=== PATIENT | female | born 1965 | race Hispanic/Latino ===

== ENCOUNTER 2017-08-08 13:41 | Inpatient (IN) | payer MEDICAID, OTHER ==
[2017-08-08 13:42] VITALS: BMI 38.7
[2017-08-08] MEDS ORDERED: Sodium Chloride 0.9% 1,000 ML IV STA ×2 (14:48→21:01)
--- NOTE | 2017-08-08 15:06 | ED PDOC ---
Arrival/HPI - General Chief Complaint: Abdominal Pain Time Seen by Provider: 08/08/17 14:27 Historian: Patient - History of Present Illness Narrative History of Present Illness (Text): 08/08/17 15:03 52 year old female, whose history includes pancreatitis, presents to the Emergency department complaining of several days of epigastric pain with nausea. Patient denies any vomiting, fever, chills, chest pain, shortness of breath, dysuria, back pain, neck pain, headache, dizziness, or any other complaints. Time/Duration: < week Symptom Onset: Gradual Symptom Course: Unchanged Context: Home Past Medical History - Provider Review Nursing Documentation Reviewed: Yes - Infectious Disease Hx of Infectious Diseases: None - Reproductive Menopause: Yes - Cardiac Hx Cardiac Disorders: No Hx Angina: No Hx Atrial Fibrillation: No Hx Cardiac Arrhythmia: No Hx Circulatory Problems: No Hx Congestive Heart Failure: No Hx [place]: No Hx Heart Murmur: No Hx Heart Transplant: No Hx Hypertension: Yes Hx Hypotension: No Hx Internal Defibrillator: No Hx Mitral Valve Prolapse: No Hx Pacemaker: No Hx Peripheral Edema: No Hx Peripheral Vascular Disease: No - Pulmonary Hx Respiratory Disorders: No Hx Asthma: No Hx Bronchitis: No Hx Chronic Obstructive Pulmonary Disease (COPD): No Hx Emphysema: No Hx Lung Cancer: No Hx Pneumonia: No Hx Pulmonary Embolism: No Hx Respiratory Aspiration: No Hx Respiratory Tract Infection: No Hx Sleep Apnea: No Hx Tuberculosis: No - Neurological Hx Neurological Disorder: No Hx Alzheimer's Disease: No HX Cerebrovascular Accident: No Hx Dementia: No Hx Dizziness: No Hx Headaches: No Hx Meningitis: No Hx Migraine: No Hx Multiple Sclerosis: No Hx Paralysis: No Hx Parkinson's Disease: No Hx Seizures: No Hx Syncope: No Hx Transient Ischemic Attacks (TIA): No Hx Vertigo: No - HEENT Hx HEENT Disorder: No Hx Blind: No Hx Cataracts: No Hx Deafness: No Hx Difficulty Chewing: No Hx Epistaxis: No Hx Glaucoma: No Hx Macular Degeneration: No - Renal Hx Renal Disorder: No Hx Dialysis: No Hx Kidney Stones: No Hx Neurogenic Bladder: No Hx Pyelonephritis: No Hx Renal Failure: No - Endocrine/Metabolic Hx Endocrine Disorders: No Hx Adrenal Cancer: No Hx Diabetes Mellitus Type 2: Yes Hx Hyperthyroidism: No Hx Hypothyroidism: No Hx Systemic Lupus Erythematosus: No - Hematological/Oncological Hx Blood Disorders: No Hx Blood Transfusions: No Hx Blood Transfusion Reaction: No - Integumentary Hx Dermatological Disorder: No Hx Cellulitis: No - Musculoskeletal/Rheumatological Hx Musculoskeletal Disorders: No Hx Arthritis: No Hx Back Pain: No Hx Degenerative Joint Disease: No Hx Fractures: No Hx Gout: No Hx Herniated Disk: No Hx Myasthenia Gravis: No Hx Osteoarthritis: No Hx Osteomyelitis: No Hx Osteoporosis: No Hx Rhabdomyolysis: No Hx Rheumatoid Arthritis: No Hx Spinal Stenosis: No Hx Unsteady Gait: No - Gastrointestinal Hx Gastrointestinal Disorders: No Hx Bowel Surgery: No Hx Colitis: No Hx Constipation: No Hx Crohn's Disease: No Hx Diarrhea: No Hx Diverticulitis: No Hx Esophageal Varices: No Hx Fatty Liver Disease: No Hx Gall Bladder Disease: Yes Hx Gastritis: No Hx Gastroesophageal Reflux: No Hx Gastrointestinal Ulcer: No Hx Hemorrhoids: No Hx Ileostomy: No Hx Irritable Bowel: No Hx Liver Failure: No Hx Nausea: No Hx Pancreatitis: Yes Hx Vomiting: No - Genitourinary/Gynecological Hx Genitourinary Disorders: No Hx Bladder Cancer: No Hx Bladder Stone: No Hx Cervical Cancer: No Hx Hematuria: No Hx Incontinence: No Hx Ovarian Cancer: No Hx Prostate Cancer: No Hx Prostate Problems: No Hx Reproductive Disorders: No Hx Sexually Transmitted Diseases: No Hx Uterine Cancer: No Hx Urinary Tract Infection: No - Psychiatric Hx Psychophysiologic Disorder: No Hx Anxiety: Yes Hx Bipolar Disorder: No Hx Depression: No Hx Emotional Abuse: No Hx Hallucinations: No Hx Panic Disorder: No Hx Post Traumatic Stress Disorder: No Hx Psychosis: No Hx Physical Abuse: No Hx Schizophrenia: No Hx Sexual Abuse: No Hx Substance Use: No - Surgical History Hx Amputation: No Hx Arthroscopy: No Hx Bile Duct Stent: No Hx Breast Biopsy: No Hx Section: No Hx Cholecystectomy: Yes Hx Dilation and Curettage: No Hx Hysterectomy: No Hx Joint Replacement: No Hx Kidney Transplant: No Hx Mastectomy: No Hx Musculoskeletal Surgery: No Hx Open Reduction Internal Fixation: No Hx Orthopedic Surgery: No Hx Parathyroidectomy: No Hx Penile Implant: No Hx Thyroidectomy: No Hx Tubal Ligation: No Hx Vascular Access Device: No - Anesthesia Hx Anesthesia: Yes Hx Anesthesia Reactions: No Hx Malignant Hyperthermia: No - Suicidal Assessment Feels Threatened In Home Enviroment: No Family/Social History - Physician Review Nursing Documentation Reviewed: Yes Family/Social History: Unknown Family HX Smoking Status: Former Smoker Hx Alcohol Use: No Hx Substance Use: No Substance used: refer Hx Substance Use Treatment: No Allergies/Home Meds Allergies/Adverse Reactions: Allergies No Known Allergies Allergy (Verified 08/08/17 13:43) Home Medications: Home Meds Medication Instructions Recorded Confirmed ALPRAZolam [Xanax] 0.25 mg PO HS 10/22/15 08/08/17 Glipizide 10 mg PO BID 10/22/15 08/08/17 MetFORMIN [glucoPHAGE] 1,000 mg PO BID 10/22/15 08/08/17 Pioglitazone [Actos] 15 mg PO DAILY 08/08/17 08/08/17 Review of Systems - Physician Review All systems were reviewed & negative as marked: Yes - Review of Systems Constitutional: Normal Eyes: Normal ENT: Normal Respiratory: Normal Cardiovascular: Normal Gastrointestinal: Abdominal Pain (epigastric pain), Nausea Genitourinary Female: Normal Musculoskeletal: Normal Skin: Normal Neurological: Normal Endocrine: Normal Hemo/Lymphatic: Normal Psychiatric: Normal Physical Exam Vital Signs Reviewed: Yes Vital Signs Temp Pulse Resp BP Pulse Ox 08/08/17 17:12 67 18 137/83 96 08/08/17 16:00 77 18 124/85 97 08/08/17 13:50 98.1 F 103 H 17 122/89 95 Temperature: Afebrile Blood Pressure: Normal Pulse: Tachycardic Respiratory Rate: Normal Appearance: Positive for: Non-Toxic, Uncomfortable Pain Distress: None Mental Status: Positive for: Alert and Oriented X 3 - Systems Exam Head: Present: Atraumatic, Normocephalic Pupils: Present: PERRL Extroacular Muscles: Present: EOMI Conjunctiva: Present: Normal Mouth: Present: Moist Mucous Membranes Neck: Present: Normal Range of Motion Respiratory/Chest: Present: Clear to Auscultation, Good Air Exchange. No: Respiratory Distress, Accessory Muscle Use Cardiovascular: Present: Regular Rate and Rhythm, Normal S1, S2. No: Murmurs Abdomen: Present: Tenderness (epigastric tenderness) Back: Present: Normal Inspection Upper Extremity: Present: Normal Inspection. No: Cyanosis, Edema Lower Extremity: Present: Normal Inspection. No: Edema Neurological: Present: GCS=15, CN II-XII Intact, Speech Normal Skin: Present: Warm, Dry, Normal Color. No: Rashes Psychiatric: Present: Alert, Oriented x 3, Normal Insight, Normal Concentration Medical Decision Making ED Course and Treatment: 08/08/17 15:10 You were treated in the ED today for abdominal pain otherwise without any vomiting/headache/dizziness/difficulty breathing/chest pain/numbness/tingling/ loss of limb function/pain with urination. You were otherwise breathing easily, good strength/sensation, walking easily, clear lungs, mild epigastric abdomen tenderness, no fever temp 98.1, stable heart rate 103, stable breathing rate 17 , stable oxygen level 95% room air, stable blood pressure 122/89, you have blood tests no infection count 7.2, stable blood level hemoglobin 15.6/ platelets 273, stable chemistry sodium 133, potassium 4.3, bicarbonate 27, chloride 95, bun 16, creatinine 0.8, glucose 377 which we gave intravenous fluids and repeat, heart blood test <0.01, urine test no acute sign of infection , urine test you stated menopause, radiology CT abdomen/pelvis mesenteric stranding uncinate/duodenum pancreatitis, ECG similar to prior, intravenous fluids, hydromorphone done in the ED with improvement, counselled to drink liquids for 24-48hours. Plan: -- EKG -- Urinalysis -- Labs -- Pepcid, Sodium Chloride IV fluids -- Reassess and disposition 08/08/17 17:36 08/08/17 17:39 08/08/17 20:15 08/08/17 21:33 d/w Dr. [place] who [place] [facility] [place] - Lab Interpretations Lab Results: 08/08/17 15:00 08/08/17 15:00 Lab Results 08/08/17 18:34: POC Glucose (mg/dL) 273 H 08/08/17 15:10: Urine Color Yellow, Urine Appearance Sl cloudy, Urine pH 6.0, Ur Specific [place] 1.020, Urine Protein 100 H, Urine Glucose (UA) >=1000, Urine Ketones Negative, Urine Blood Trace-intact H, Urine Nitrate Negative, Urine Bilirubin Negative, Urine Urobilinogen 0.2, Ur Leukocyte Esterase Negative , Urine RBC 0 - 2, Urine WBC 2 - 5, Ur Epithelial Cells 6 - 8, Urine Bacteria Few 08/08/17 15:00: Sodium 133, Potassium 4.3, Chloride 95 L, Carbon Dioxide 27, Anion Gap 16, BUN 16, Creatinine 0.8, Est GFR ( Amer) > 60, Est GFR (Non- Af Amer) > 60, Random Glucose 377 H* D, Calcium 10.3, Total Bilirubin 0.6, AST 27, ALT 45, Alkaline Phosphatase 58, Troponin I < 0.01, Total Protein 7.6, Albumin 4.2, Globulin 3.5, Albumin/Globulin Ratio 1.2, Lipase 247 08/08/17 15:00: PT 11.8, INR 1.03, APTT 31.6 08/08/17 15:00: WBC 7.2, RBC 5.05, Hgb 15.6, Hct 43.3, MCV 85.7, MCH 30.9, MCHC 36.0, RDW 12.6, Plt Count 273, MPV 10.2, Gran % 64.6, Lymph % (Auto) 28.8, [place] % (Auto) 4.7, Eos % (Auto) 1.5, Baso % (Auto) 0.4, Gran # 4.67, Lymph # 2.1, [place] # 0.3, Eos # 0.1, Baso # 0.03 I have reviewed the lab results: Yes - RAD Interpretation Radiology Orders: 08/08/17 16:15 ABDOMEN & PELVIS [ABD & PELVIS IV CONTRAST ONLY] [CT] Stat - EKG Interpretation Interpreted by ED Physician: Yes (NSR, flipped t waves avr, v1, flattened iii) Type: 12 lead EKG Comparison: Similar to previous EKG (01/23/16) - Medication Orders Current Medication Orders: Famotidine (Pepcid) 40 mg PO HS THIAGO Fenofibrate (Tricor) 145 mg PO DAILY THIAGO Heparin Sodium (Porcine) (Heparin) 5,000 units SC Q8 THIAGO PRN Reason: Protocol Hydralazine HCl (Apresoline) 10 mg IVP Q6 PRN PRN Reason: Systolic Blood Pressure Sodium Chloride (Sodium Chloride 0.9%) 1,000 mls @ 999 mls/hr IV .Q1H1M STA Stop: 08/08/17 22:01 Sodium Chloride (Sodium Chloride 0.9%) 1,000 mls @ 125 mls/hr IV .Q8H THIAGO Insulin Human Lispro (Humalog Med) 0 units SC ACHS THIAGO PRN Reason: Protocol Losartan Potassium (Cozaar) 50 mg PO DAILY THIAGO Morphine Sulfate (Morphine) 1 mg IVP Q4H PRN PRN Reason: Pain, severe (8-10) Ondansetron HCl (Zofran Inj) 4 mg IVP Q6H PRN PRN Reason: Nausea/Vomiting Oxycodone/Acetaminophen (Percocet 5/325 Mg Tab) 1 tab PO Q6H PRN PRN Reason: Pain, moderate (4-7) Stop: 08/11/17 21:18 Discontinued Medications Famotidine (Pepcid) 20 mg IVP STAT STA Stop: 08/08/17 14:49 Last Admin: 08/08/17 15:15 Dose: 20 mg IVP Administration Document 08/08/17 15:15 SF (Rec: 08/08/17 15:15 SF [id number] Charges for Administration # of IVP Administrations 1 Hydromorphone HCl (Dilaudid) 1 mg IVP STAT STA Stop: 08/08/17 15:25 Last Admin: 08/08/17 16:02 Dose: 1 mg MAR Pain Assessment Document 08/08/17 16:02 SF (Rec: 08/08/17 16:02 SF [id number] Pain Reassessment Is this a pain reassessment? Yes Sleep Is patient sleeping during reassessment? No Presence of Pain Presence of Pain Yes Pain Scale Used Pain Scale Used Numeric Location Pain Location Body Site Abdomen IVP Administration Document 08/08/17 16:02 SF (Rec: 08/08/17 16:02 SF [id number] Charges for Administration # of IVP Administrations 1 Hydromorphone HCl (Dilaudid) 1 mg IVP STAT STA Stop: 08/08/17 19:55 Last Admin: 08/08/17 20:43 Dose: 1 mg MAR Pain Assessment Document 08/08/17 20:43 SS (Rec: 08/08/17 20:43 SS [id number]) Pain Reassessment Is this a pain reassessment? No Presence of Pain Presence of Pain Yes Pain Scale Used Pain Scale Used Numeric Location Pain Location Body Site Abdomen Description Intensity of Pain at present 8 Pain Behavior Facial Grimacing IVP Administration Document 08/08/17 20:43 SS (Rec: 08/08/17 20:43 SS [id number]) Charges for Administration # of IVP Administrations 1 Sodium Chloride (Sodium Chloride 0.9%) 1,000 mls @ 1,000 mls/hr IV .Q1H STA Stop: 08/08/17 15:47 Last Admin: 08/08/17 15:15 Dose: 1,000 mls/hr eMAR Start Stop Document 08/08/17 15:15 SF (Rec: 08/08/17 15:15 SF [id number] Intravenous Solution Start Date 08/08/17 Start Time 15:15 End Date 08/08/17 End time 16:15 Total Infusion Time 60 Ondansetron HCl (Zofran Inj) 4 mg IVP ONCE ONE Stop: 08/08/17 15:25 Last Admin: 08/08/17 16:02 Dose: 4 mg IVP Administration Document 08/08/17 16:02 SF (Rec: 08/08/17 16:02 SF [id number] Charges for Administration # of IVP Administrations 1 Ondansetron HCl (Zofran Inj) 4 mg IVP STAT STA Stop: 08/08/17 19:55 Last Admin: 08/08/17 20:43 Dose: 4 mg IVP Administration Document 08/08/17 20:43 SS (Rec: 08/08/17 20:43 SS [id number]) Charges for Administration # of IVP Administrations 1 Pantoprazole Sodium (Protonix Inj) 80 mg IVP STAT STA Stop: 08/08/17 19:54 Last Admin: 08/08/17 20:42 Dose: 80 mg IVP Administration Document 08/08/17 20:42 SS (Rec: 08/08/17 20:42 SS [id number]) Charges for Administration # of IVP Administrations 1 - Scribe Statement The provider has reviewed the documentation as recorded by the Victoria Diaz Provider Scribe Attestation: All medical record entries made by the Scribe were at my direction and personally dictated by me. I have reviewed the chart and agree that the record accurately reflects my personal performance of the history, physical exam, medical decision making, and the department course for this patient. I have also personally directed, reviewed, and agree with the discharge instructions and disposition. Disposition/Present on Arrival - Present on Arrival Any Indicators Present on Arrival: No History of DVT/PE: No History of Uncontrolled Diabetes: Yes Urinary Catheter: No History of Decub. Ulcer: No History Surgical Site Infection Following: None - Disposition Have Diagnosis and Disposition been Completed?: Yes Diagnosis: Pancreatitis, Hyperglycemia Disposition: HOSPITALIZED Disposition Time: 21:34 Patient Plan: Admission Patient Problems: Current Active Problems Problem Status Onset Hyperglycemia Acute Pancreatitis Acute Condition: STABLE
[2017-08-08 15:14] LABS: BASO # 0.03 K/mm3 (0.0-2.0); BASO % 0.4 % (0.0-3.0); EOS # 0.1 (0.0-0.7); EOS % 1.5 % (1.5-5.0); GRAN # 4.67 (1.4-6.5); GRAN % 64.6 % (50.0-68.0); HEMOGLOBIN 15.6 g/dL (12.0-16.0); LYMPH # 2.1 (1.2-3.4); LYMPH % 28.8 % (22.0-35.0); MEAN CELL VOLUME 85.7 fl (80.0-105.0); MEAN CORPUSCULAR HEMOGLOBIN 30.9 pg (25.0-35.0); MEAN PLATELET VOLUME 10.2 fl (7.0-11.0); MONO # 0.3 (0.1-0.6); MONO % 4.7 % (1.0-6.0); RBC 5.05 10^6/uL (3.5-6.1); RED CELL DISTRIBUTION WIDTH 12.6 % (11.5-14.5); WHITE BLOOD COUNT 7.2 10^3/ul (4.5-11.0)
[2017-08-08 15:24] LABS: URINE BILIRUBIN NEGATIVE (NEGATIVE); URINE BLOOD TRACE-INTACT (NEGATIVE); URINE GLUCOSE (UA) >=1000 mg/dL (NEGATIVE); URINE LEUKOCYTE ESTERASE NEGATIVE Leu/uL (NEGATIVE); URINE NITRATE NEGATIVE (NEGATIVE); URINE PROTEIN 100 mg/dL (<30 mg/dL); URINE UROBILINOGEN 0.2 E.U./dL (<1 E.U./dL)
[2017-08-08] MEDS ORDERED: HYDROmorphone 1 mg/ml ISec IVP STA ×2 (15:24→19:54)
[2017-08-08 15:25] LABS: URINE APPEARANCE SL CLOUDY (CLEAR); URINE COLOR YELLOW (YELLOW)
[2017-08-08 15:30] LABS: TROPONIN I < 0.01 ng/mL
[2017-08-08 15:34] LABS: INR 1.03 (0.93-1.08); PARTIAL THROMBOPLASTIN TIME 31.6 Seconds (25.1-36.5); PROTHROMBIN TIME 11.8 SECONDS (9.4-12.5)
[2017-08-08 15:41] LABS: ALB/GLOB RATIO 1.2 (1.1-1.8); ALBUMIN 4.2 g/dL (3.0-4.8); ALT/SGPT 45 U/L (7-56); AST/SGOT 27 U/L (14-36); BLOOD UREA NITROGEN 16 mg/dL (7-21); CALCIUM 10.3 mg/dL (8.4-10.5); GFR AFRICAN-AMERICAN > 60; GFR NON-AFRICAN AMERICAN > 60; LIPASE 247 U/L (23-300)
[2017-08-08 15:41] LABS: URINE BACTERIA FEW (NEG); URINE RBC 0 - 2 /hpf (0-2)
[2017-08-08] MEDS ORDERED: Iohexol 350 MG/100 ML VIAL ONE (18:02)
--- NOTE | 2017-08-08 19:49 | CT ---
EXAM: CT Abdomen and Pelvis With Intravenous Contrast CLINICAL HISTORY: 52 years old, female; Pain; Abdominal pain; Epigastric; Prior surgery; Surgery date: 6+ months; Surgery type: Gallbladder removal; Patient HX: 52yof, epigastric pain/tenderness. ; Additional info: 52yof, epigastric pain/tenderness. TECHNIQUE: Axial computed tomography images of the abdomen and pelvis with intravenous contrast. All CT scans at this facility use one or more dose reduction techniques, viz.: automated exposure control; ma/kV adjustment per patient size (including targeted exams where dose is matched to indication; i.e. head); or iterative reconstruction technique. Coronal and sagittal reformatted images were created and reviewed. CONTRAST: 96 mL of OMNIPAQUE 350 administered intravenously. COMPARISON: CT - ABD PELVIS IV CONTRAST ONLY 2016-01-23 14:02 FINDINGS: Lower thorax: Dependent atelectasis. Liver: Fatty infiltration of the liver. Gallbladder and bile ducts: Status post cholecystectomy. Pancreas: Mesenteric stranding in region of uncinate process. Approximately 1 x 2 x 4 cm mass between the uncinate process and IVC, question norma conglomerate or other mass. Spleen: No splenomegaly. Adrenals: 2 cm left adrenal mass. Kidneys and ureters: No acute abnormality as visualized. Symmetric emhancement. No hydronephrosis. Stomach and bowel: Limited evaluation without enteric contrast. Thickening of distal esophageal wall/hiatal hernia. Adjacent mesenteric stranding in region of duodenal sweep. No obstruction. Bladder: No acute abnormality as visualized. Reproductive: Evidence of approximately 2 cm right ovarian cyst. Further evaluation can be performed with dedicated ultrasound. Intraperitoneal space: No free air. No significant fluid collection. Bones: Degenerative changes. Vasculature: Atherosclerosis. No abdominal aortic aneurysm. IMPRESSION: Mesenteric stranding in region of uncinate process. Mesenteric stranding is also adjacent to the duodenal sweep. Question pancreatitis versus duodenitis. Correlate clinically. Evaluation limited without enteric contrast. Approximately 1 x 2 x 4 cm mass between the uncinate process and IVC, question norma conglomerate or other mass. This is visualized on prior study. Further evaluation recommended. Thickening of distal esophageal wall/hiatal hernia. 2 cm left adrenal mass. Fatty infiltration of the liver. Status post cholecystectomy. Evidence of approximately 2 cm right ovarian cyst. Further evaluation can be performed with dedicated ultrasound.
--- NOTE | 2017-08-08 20:24 | CP.PCM.HP ---
<Ubaldo Daniels - Last Filed: 08/08/17 20:46> History of Present Illness - History of Present Illness History of Present Illness: CC: abdominal pain Subjective: HPI: Patient is a 52 year old female with past medical history of pancreatits, htn, dm, anxiety, adrenal adenoma, who presents to the emergency department for evaluation and treatment of abdominal pain. The pain began 2 days ago with no specific provoking events. It originates in epigastrum and radiates to the back. There is associated nausea and non bloody non bilious vomitting. States the pain worsens with po intake. Denies recent travel and sick contacts. Patient denies intractable headache, fever, chills, dizziness, blurry vision, ringing in the ears, chest pain, shortness of breath, diarrhea, constipation, and urinary symptoms. ROS: 12 point review of systems negative except as indicated in HPI PMHx: pancreatitis of unknown etiology, cholecystitis s/p cholecystectomy, DM-2 , HTN , Anxiety, adrenal adenoma PSHx: cholecystectomy Allergies: NKDA Family Hx: Father - CHF and [place] Social Hx: denies ETOH use, current 1/2 ppd tobacco use for that past 30 years , former illicit drug use-quit over 15 years ago Medications: Please see medication reconciliation Physical Examination: - Constitutional Appears: Non-toxic, No Acute Distress - Head Exam Head Exam: atraumatic, normocephalic - Eye Exam Eye Exam: Normal appearance, PERRL. absent: Scleral icterus - ENT Exam ENT Exam: Mucous Membranes Moist - Neck Exam Neck exam: Normal Inspection - Respiratory Exam Respiratory Exam: Normal Breathing Pattern - Cardiovascular Exam Cardiovascular Exam: +S1, +S2. absent: Gallop, JVD - GI/Abdominal Exam GI & Abdominal Exam: tender to palpation in the epigastrum, Normal Bowel Sounds , absent: Distended, Guarding, Pulsatile Mass, Rebound, Rigid - Extremities Exam Extremities exam: Negative for: calf tenderness - Neurological Exam Neurological exam: Patient is awake, alert, responds to verbal stimuli, answers questions appropriately, follows commands, and moves extremities past midline - Psychiatric Exam Psychiatric exam: Normal Affect, Normal Mood - Skin Skin Exam: warm and dry Assessment and Plan: Patient is a 52 year old female with past medical history of pancreatits, htn, dm, anxiety, adrenal adenoma, who was admitted for evaluation and treatment of abdominal pain. Abdominal Pain, Hx of Pancreatitis - clinically presents as pancreatitis though lipase is WNL vs duodenitis - CT of abd/pelvis reviewed- Mesenteric stranding in region of uncinate process. Mesenteric stranding is also adjacent to the duodenal sweep. Question pancreatitis versus duodenitis. Approximately 1 x 2 x 4 cm mass between the uncinate process and IVC, question norma conglomerate or other mass. This is visualized on prior study. - zofran - pain control via pecocet 1mg q6 prn moderate pain, morphine 1mg q4 prn severe pain - IVF NS @ 125 - clear liquid diet- advance diet as tolerated Hyperglycemia, Hx of Diabetes - hold home diabetic medications - fingersticks ACHS - insulin sliding scale- lispro medium - resume diet as carb consistent as end goal - a1c ordered and pending Hx of Htn - BP reviewed trended and appreciated - c/w losartan - hydralazine 5mg IV q6 prn SBP > 180, holding parameters- do not administer if HR is > 100 bpm Hx of Hyperlipidemia - c/w fenofibrate - lipid profile pending Hx of Adrenal Adenoma - 2 cm left adrenal mass seen on CT - no acute intervention at this point Ovarian Cyst - CT of abdomen and pelvis- Evidence of approximately 2 cm right ovarian cyst - Further evaluation can be performed with dedicated ultrasound. - obgyn outpatient work up Tobacco Abuse - nicotine patch offered - smoking cessation advised - patient education provided on dangers of tobacco abuse Prophylaxis - DVT ppx- scds - GI ppx- famotidine Patient case discussed with and plan approved by attending physician. 08/08/17 20:17 Present on Admission - Present on Admission Any Indicators Present on Admission: No Past Patient History - Infectious Disease Hx of Infectious Diseases: None - Past Social History Smoking Status: Former Smoker - CARDIAC Hx Cardiac Disorders: No Hx Angina: No Hx Atrial Fibrillation: No Hx Cardia Arrhythmia: No Hx Circulatory Problems: No Hx Congestive Heart Failure: No Hx Heart Attack: No Hx Heart Murmur: No Hx Heart Transplant: No Hx Hypertension: Yes Hx Hypotension: No Hx Internal Defibrillator: No Hx Mitral Valve Prolapse: No Hx Pacemaker: No Hx Peripheral Edema: No Hx Peripheral Vascular Disease: No - PULMONARY Hx Respiratory Disorders: No Hx Asthma: No Hx Bronchitis: No Hx Chronic Obstructive Pulmonary Disease (COPD): No Hx Emphysema: No Hx Lung Cancer: No Hx Pneumonia: No Hx Pulmonary Embolism: No Hx Respiratory Aspiration: No Hx Respiratory Tract Infection: No Hx Sleep Apnea: No Hx Tuberculosis: No - NEUROLOGICAL Hx Neurological Disorder: No Hx Alzheimer's Disease: No HX Cerebrovascular Accident: No Hx Dementia: No Hx Dizziness: No Hx Meningitis: No Hx Migraine: No Hx Multiple Sclerosis: No Hx Paralysis: No Hx Parkinson's Disease: No Hx Seizures: No Hx Syncope: No Hx Transient Ischemic Attacks (TIA): No Hx Vertigo: No - HEENT Hx HEENT Problems: No Hx Blind: No Hx Cataracts: No Hx Deafness: No Hx Difficulty Chewing: No Hx Epistaxis: No Hx Glaucoma: No Hx Macular Degeneration: No - RENAL Hx Chronic Kidney Disease: No Hx Dialysis: No Hx Kidney Stones: No Hx Neurogenic Bladder: No Hx Pyelonephritis: No Hx Renal Failure: No - ENDOCRINE/METABOLIC Hx Endocrine Disorders: No Hx Adrenal Cancer: No Hx Diabetes Mellitus Type 2: Yes Hx Hyperthyroidism: No Hx Hypothyroidism: No Hx Systemic Lupus Erythematosus: No - HEMATOLOGICAL/ONCOLOGICAL Hx Blood Disorders: No Hx Blood Transfusions: No Hx Blood Transfusion Reaction: No - INTEGUMENTARY Hx Dermatological Problems: No Hx Cellulitis: No - MUSCULOSKELETAL/RHEUMATOLOGICAL Hx Musculoskeletal Disorders: No Hx Arthritis: No Hx Back Pain: No Hx Degenerative Joint Disease: No Hx Fractures: No Hx Gout: No Hx Herniated Disk: No Hx Myasthenia Gravis: No Hx Osteoarthritis: No Hx Osteomyelitis: No Hx Osteoporosis: No Hx Rhabdomyolysis: No Hx Rheumatoid Arthritis: No Hx Spinal Stenosis: No Hx Unsteady Gait: No - GASTROINTESTINAL Hx Gastrointestinal Disorders: No Hx Bowel Surgery: No Hx Colitis: No Hx Constipation: No Hx Crohn's Disease: No Hx Diarrhea: No Hx Diverticulitis: No Hx Esophageal Varices: No Hx Fatty Liver Disease: No Hx Gall Bladder Disease: Yes Hx Gastritis: No Hx Gastroesophageal Reflux: No Hx Hemorrhoids: No Hx Ileostomy: No Hx Irritable Bowel: No Hx Liver Failure: No Hx Nausea: No Hx Pancreatitis: Yes Hx Vomiting: No - GENITOURINARY/GYNECOLOGICAL Hx Genitourinary Disorders: No Hx Bladder Cancer: No Hx Bladder Stone: No Hx Cervical Cancer: No Hx Hematuria: No Hx Incontinence: No Hx Ovarian Cancer: No Hx Reproductive Disorders: No Hx Sexually Transmitted Disorders: No Hx Uterine Cancer: No Hx Urinary Tract Infection: No - PSYCHIATRIC Hx Psychophysiologic Disorder: No Hx Anxiety: Yes Hx Bipolar Disorder: No Hx Depression: No Hx Emotional Abuse: No Hx Hallucinations: No Hx Panic Symptoms: No Hx Post Traumatic Stress Disorder: No Hx Psychosis: No Hx Physical Abuse: No Hx Schizophrenia: No Hx Sexual Abuse: No Hx Substance Use: No - SURGICAL HISTORY Hx Amputation: No Hx Arthroscopy: No Hx Bile Duct Stent: No Hx Breast Biopsy: No Hx Section: No Hx Cholecystectomy: Yes Hx Dilation and Curettage: No Hx Hysterectomy: No Hx Joint Replacement: No Hx Kidney Transplant: No Hx Mastectomy: No Hx Musculoskeletal Surgery: No Hx Open Reduction Internal Fixation: No Hx Orthopedic Surgery: No Hx Parathyroidectomy: No Hx Penile Implant: No Hx Thyroidectomy: No Hx Tubal Ligation: No Hx Vascular Access Device: No - ANESTHESIA Hx Anesthesia: Yes Hx Anesthesia Reactions: No Hx Malignant Hyperthermia: No Meds Allergies/Adverse Reactions: Allergies Allergy/AdvReac Type Severity Reaction Status Date / Time No Known Allergies Allergy Verified 08/08/17 13:43 Results - Vital Signs Recent Vital Signs: Last Vital Signs Temp 98.1 F 08/08/17 13:50 Pulse 67 08/08/17 17:12 Resp 18 08/08/17 17:12 BP 137/83 08/08/17 17:12 Pulse Ox 96 08/08/17 17:12 - Labs Result Diagrams: 08/08/17 15:00 08/08/17 15:00 Labs: Laboratory Results - last 24 hr 08/08/17 08/08/17 08/08/17 15:00 15:00 15:00 WBC 7.2 RBC 5.05 Hgb 15.6 Hct 43.3 MCV 85.7 MCH 30.9 MCHC 36.0 RDW 12.6 Plt Count 273 MPV 10.2 Gran % 64.6 Lymph % (Auto) 28.8 [place] % (Auto) 4.7 Eos % (Auto) 1.5 Baso % (Auto) 0.4 Gran # 4.67 Lymph # 2.1 Will[place] # 0.3 Eos # 0.1 Baso # 0.03 PT 11.8 INR 1.03 APTT 31.6 Sodium 133 Potassium 4.3 Chloride 95 L Carbon Dioxide 27 Anion Gap 16 BUN 16 Creatinine 0.8 Est GFR ( Amer) > 60 Est GFR (Non-Af Amer) > 60 POC Glucose (mg/dL) Random Glucose 377 H* D Calcium 10.3 Total Bilirubin 0.6 AST 27 ALT 45 Alkaline Phosphatase 58 Troponin I < 0.01 Total Protein 7.6 Albumin 4.2 Globulin 3.5 Albumin/Globulin Ratio 1.2 Lipase 247 Urine Color Urine Appearance Urine pH Ur Specific Stamps Urine Protein Urine Glucose (UA) Urine Ketones Urine Blood Urine Nitrate Urine Bilirubin Urine Urobilinogen Ur Leukocyte Esterase Urine RBC Urine WBC Ur Epithelial Cells Urine Bacteria 08/08/17 08/08/17 15:10 18:34 WBC RBC Hgb Hct MCV MCH MCHC RDW Plt Count MPV Gran % Lymph % (Auto) [place] % (Auto) Eos % (Auto) Baso % (Auto) Gran # Lymph # Willacy # Eos # Baso # PT INR APTT Sodium Potassium Chloride Carbon Dioxide Anion Gap BUN Creatinine Est GFR ( Amer) Est GFR (Non-Af Amer) POC Glucose (mg/dL) 273 H Random Glucose Calcium Total Bilirubin AST ALT Alkaline Phosphatase Troponin I Total Protein Albumin Globulin Albumin/Globulin Ratio Lipase Urine Color Yellow Urine Appearance Sl cloudy Urine pH 6.0 Ur Specific Stamps 1.020 Urine Protein 100 H Urine Glucose (UA) >=1000 Urine Ketones Negative Urine Blood Trace-intact H Urine Nitrate Negative Urine Bilirubin Negative Urine Urobilinogen 0.2 Ur Leukocyte Esterase Negative Urine RBC 0 - 2 Urine WBC 2 - 5 Ur Epithelial Cells 6 - 8 Urine Bacteria Few <UniqueMick Q - Last Filed: 08/09/17 01:23> Results - Vital Signs Recent Vital Signs: Last Vital Signs Temp 98.1 F 08/08/17 13:50 Pulse 64 08/08/17 22:07 Resp 18 08/08/17 23:40 BP 147/83 08/08/17 22:07 Pulse Ox 99 08/08/17 22:07 - Labs Result Diagrams: 08/08/17 15:00 08/08/17 15:00 Labs: Laboratory Results - last 24 hr 08/08/17 21:55 POC Glucose (mg/dL) 257 H Attending/Attestation - Attestation I have personally seen and examined this patient.: Yes I have fully participated in the care of the patient.: Yes I have reviewed all pertinent clinical information: Yes Notes (Text): 08/09/17 01:22 I agree with the above note and exam by the resident with the addition/ exception of the following: Abd pain secondary to duodenitis vs pancreatitis vs viral gastroenteritis. Will start patient on a CLD and advance as tolerated; avoidance of high dose opiates which were started in the ED for analgesia.
[2017-08-08] MEDS ORDERED: Sodium Chloride 0.9% 1,000 ML IV SCH (21:15)
[2017-08-08] MEDS: Insulin Lispro (humaLOG) MEDIUM Coverage SC SCH (22:32)
[2017-08-08 22:43] LABS: HDL CHOLESTEROL 38 mg/dL (29-60)
[2017-08-08 22:54] LABS: LDL CHOLESTEROL 130 mg/dL (0-129)
[2017-08-08] MEDS: Morphine 2 mg/ml ISec IVP PRN ×2 (23:34→23:59)
[2017-08-09] MEDS: Oxycodone/Acetaminophen 5/325 mg Tab PO PRN ×3 (02:56→20:19)
[2017-08-09] MEDS: Morphine 2 mg/ml ISec IVP PRN ×3 (05:15→17:11)
[2017-08-09] MEDS ORDERED: HYDROmorphone 0.5 mg/0.5 ml ISec IVP STA (06:07)
[2017-08-09 07:17] LABS: BASO # 0.04 K/mm3 (0.0-2.0); BASO % 0.5 % (0.0-3.0); EOS # 0.2 (0.0-0.7); EOS % 2.1 % (1.5-5.0); GRAN # 4.81 (1.4-6.5); GRAN % 62.4 % (50.0-68.0); LYMPH # 2.2 (1.2-3.4); MEAN CELL VOLUME 86.2 fl (80.0-105.0); MEAN CORPUSCULAR HEMOGLOBIN 30.5 pg (25.0-35.0); MEAN CORPUSCULAR HGB CONC 35.3 g/dl (31.0-37.0); MONO # 0.5 (0.1-0.6); RBC 4.43 10^6/uL (3.5-6.1); RED CELL DISTRIBUTION WIDTH 12.6 % (11.5-14.5); WHITE BLOOD COUNT 7.7 10^3/ul (4.5-11.0)
[2017-08-09 07:19] LABS: HEMOGLOBIN 13.5 g/dL (12.0-16.0)
[2017-08-09 07:45] LABS: ALB/GLOB RATIO 1.1 (1.1-1.8); ALBUMIN 3.5 g/dL (3.0-4.8); ALT/SGPT 35 U/L (7-56); AST/SGOT 24 U/L (14-36); BLOOD UREA NITROGEN 14 mg/dL (7-21); CALCIUM 9.3 mg/dL (8.4-10.5); GFR AFRICAN-AMERICAN > 60; GFR NON-AFRICAN AMERICAN > 60; MAGNESIUM 1.1 mg/dL (1.7-2.2)
[2017-08-09] MEDS ORDERED: Magnesium Oxide 400 mg Tab UD PO STA (08:20)
--- NOTE | 2017-08-09 09:25 | CP.PCM.PN ---
Subjective - Date & Time of Evaluation Date of Evaluation: 08/09/17 Time of Evaluation: 10:52 - Subjective Subjective: Patient was seen and examined at bedside. she states that her pain has improved. she states that she has had this pain 3 times before, starting after the time she got the cholecystectomy (by Dr. Jolley. patient is not vomiting and nausea is improving. Patient denies any headaches, dizziness, fevers/chills , sob, chest pain or urinary changes. Objective - Vital Signs/Intake and Output Vital Signs (last 24 hours): Temp Pulse Resp BP Pulse Ox 97.8 F 65 20 159/65 H 94 L 08/09/17 07:30 08/09/17 07:30 08/09/17 07:30 08/09/17 07:30 08/09/17 07:30 Intake and Output: 08/09/17 08/09/17 06:59 18:59 Intake Total 1280 Balance 1280 - Medications Medications: Current Medications Famotidine (Pepcid) 40 mg PO HS THIAGO Last Admin: 08/08/17 23:36 Dose: 40 mg Fenofibrate (Tricor) 145 mg PO DAILY [facility] Heparin Sodium (Porcine) (Heparin) 5,000 units SC Q8 THIAGO PRN Reason: Protocol Last Admin: 08/09/17 06:32 Dose: 5,000 units Hydralazine HCl (Apresoline) 10 mg IVP Q6 PRN PRN Reason: Systolic Blood Pressure Lactated Ringer's (Lactated Ringer's) 1,000 mls @ 200 mls/hr IV .Q5H THIAGO Insulin Human Lispro (Humalog Med) 0 units SC ACHS THIAGO PRN Reason: Protocol Last Admin: 08/08/17 22:32 Dose: Not Given Losartan Potassium (Cozaar) 50 mg PO DAILY [facility] Morphine Sulfate (Morphine) 1 mg IVP Q4H PRN PRN Reason: Pain, severe (8-10) Last Admin: 08/09/17 05:15 Dose: 1 mg Ondansetron HCl (Zofran Inj) 4 mg IVP Q6H PRN PRN Reason: Nausea/Vomiting Last Admin: 08/09/17 00:06 Dose: 4 mg Oxycodone/Acetaminophen (Percocet 5/325 Mg Tab) 1 tab PO Q6H PRN PRN Reason: Pain, moderate (4-7) Stop: 08/11/17 21:18 Last Admin: 08/09/17 02:56 Dose: 1 tab - Labs Labs: 08/09/17 06:30 08/09/17 06:30 PT 11.8 SECONDS (9.4-12.5) 08/08/17 15:00 INR 1.03 (0.93-1.08) 08/08/17 15:00 APTT 31.6 Seconds (25.1-36.5) 08/08/17 15:00 - Additional Findings Additional findings: - Constitutional Appears: Non-toxic, No Acute Distress - Head Exam Head Exam: atraumatic, normocephalic - Eye Exam Eye Exam: Normal appearance, PERRL. absent: Scleral icterus - ENT Exam ENT Exam: Mucous Membranes Moist - Neck Exam Neck exam: Normal Inspection - Respiratory Exam Respiratory Exam: Normal Breathing Pattern - Cardiovascular Exam Cardiovascular Exam: +S1, +S2. absent: Gallop, JVD - GI/Abdominal Exam GI & Abdominal Exam: tender to palpation in the epigastrum, Normal Bowel Sounds , absent: Distended, Guarding, Pulsatile Mass, Rebound, Rigid - Extremities Exam Extremities exam: Negative for: calf tenderness - Neurological Exam Neurological exam: Patient is awake, alert, responds to verbal stimuli, answers questions appropriately, follows commands, and moves extremities past midline - Psychiatric Exam Psychiatric exam: Normal Affect, Normal Mood - Skin Skin Exam: warm and dry Assessment and Plan - Assessment and Plan (Free Text) Assessment: 52 year old female with past medical history of pancreatits, htn, dm, anxiety, adrenal adenoma, who was admitted for evaluation and treatment of abdominal pain. Plan: Abdominal Pain, Hx of Pancreatitis - clinically presents as pancreatitis though lipase is WNL - CT of abd/pelvis reviewed- Mesenteric stranding in region of uncinate process. Mesenteric stranding is also adjacent to the duodenal sweep. Question pancreatitis versus duodenitis. Approximately 1 x 2 x 4 cm mass between the uncinate process and IVC, question norma conglomerate or other mass. This is visualized on prior study. - zofran - pain control via pecocet 1mg q6 prn moderate pain, morphine 1mg q4 prn severe pain - IVF NS @ 125 - clear liquid diet- advance diet as tolerated - GI consulted, recs appreciated Hyperglycemia, Hx of Diabetes - hold home diabetic medications - fingersticks ACHS - insulin sliding scale- lispro medium - resume diet as carb consistent as end goal - a1c ordered and pending Hypomagnesemia - magnesium ordered Hx of Htn - BP reviewed trended and appreciated - c/w losartan - hydralazine 5mg IV q6 prn SBP > 180, holding parameters- do not administer if HR is > 100 bpm Hx of Hyperlipidemia - c/w fenofibrate - elevated LDL Hx of Adrenal Adenoma - 2 cm left adrenal mass seen on CT - no acute intervention at this point Ovarian Cyst - CT of abdomen and pelvis- Evidence of approximately 2 cm right ovarian cyst - obgyn outpatient work up Tobacco Abuse - nicotine patch offered - smoking cessation advised - patient education provided on dangers of tobacco abuse Prophylaxis - DVT ppx- scds - GI ppx- famotidine Patient was seen, examined and discussed with attending, Dr. Mojgan Clemens PGY1
--- NOTE | 2017-08-09 09:26 | CARD ---
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 Possible anterior SC, old No change
[2017-08-09] MEDS: Insulin Lispro (humaLOG) MEDIUM Coverage SC SCH ×4 (09:52→22:33)
--- NOTE | 2017-08-09 11:44 | CP.PCM.CON ---
<Delmar Haque - Last Filed: 08/09/17 12:10> History of Present Illness - History of Present Illness History of Present Illness: GI Consult note: 52 F with past medical history of ETOH abuse quit drinking in 2010, pancreatits s/p cholecystectomy in 2010 and recurrent pancreatitis followed by EUS in 2011 which was negative for any pancreatic mass, htn, dm, anxiety, adrenal adenoma, who presents to the ED with abdominal pain. Patient states that the abdominal pain is epigastric and started 2 days ago. The pain radiates to the back and is 8/10 in severity. She also complain of nausea and nonbloody nonbilious vomiting. Denies any provoking events. Pt does state that she just recently started smoking again after quitting for 2.5 years. Pt denies any freitas, dizziness , f/c, sob, chest pain, diarrhea or urinary changes. GI team was consulted for abdominal pain. 12 point ROS performed and negative except as indicated in HPI PMHx: pancreatitis , cholecystitis s/p cholecystectomy, DM-2, HTN , Anxiety, adrenal adenoma PSHx: cholecystectomy (2010) Allergies: NKDA Family Hx: Father - CHF and [facility] Social Hx: ETOH abuse (quit drinking in 2010 following cholecystectomy), current 1/2 ppd tobacco use x 30 years, former illicit drug use-quit over 15 years ago Medications: Please see medication reconciliation Endo Hx: EGD and colonoscopy was done [address] Onofre - As per patient EGD was normal, Colonoscopy showed "precancerous polyp" to be followed up after 3 years Review of Systems - Review of Systems All systems: reviewed and no additional remarkable complaints except Past Patient History - Infectious Disease Hx of Infectious Diseases: None - Past Social History Smoking Status: Light Smoker < 10 Cigarettes Daily - CARDIAC Hx Hypertension: Yes - PULMONARY Hx Respiratory Disorders: No Hx Asthma: No Hx Bronchitis: No Hx Chronic Obstructive Pulmonary Disease (COPD): No Hx Emphysema: No Hx Lung Cancer: No Hx Pneumonia: No Hx Pulmonary Embolism: No Hx Respiratory Aspiration: No Hx Respiratory Tract Infection: No Hx Sleep Apnea: No Hx Tuberculosis: No - NEUROLOGICAL Hx Neurological Disorder: No Hx Alzheimer's Disease: No HX Cerebrovascular Accident: No Hx Dementia: No Hx Dizziness: No Hx Meningitis: No Hx Migraine: No Hx Multiple Sclerosis: No Hx Paralysis: No Hx Parkinson's Disease: No Hx Seizures: No Hx Syncope: No Hx Transient Ischemic Attacks (TIA): No Hx Vertigo: No - HEENT Hx HEENT Problems: No Hx Blind: No Hx Cataracts: No Hx Deafness: No Hx Difficulty Chewing: No Hx Epistaxis: No Hx Glaucoma: No Hx Macular Degeneration: No - RENAL Hx Chronic Kidney Disease: No Hx Dialysis: No Hx Kidney Stones: No Hx Neurogenic Bladder: No Hx Pyelonephritis: No Hx Renal Failure: No - ENDOCRINE/METABOLIC Hx Diabetes Mellitus Type 2: Yes - HEMATOLOGICAL/ONCOLOGICAL Hx Blood Disorders: No Hx Blood Transfusions: No Hx Blood Transfusion Reaction: No - INTEGUMENTARY Hx Dermatological Problems: No Hx Cellulitis: No - MUSCULOSKELETAL/RHEUMATOLOGICAL Hx Falls: No - GASTROINTESTINAL Hx Pancreatitis: Yes - GENITOURINARY/GYNECOLOGICAL Hx Genitourinary Disorders: No Hx Bladder Cancer: No Hx Bladder Stone: No Hx Cervical Cancer: No Hx Hematuria: No Hx Incontinence: No Hx Ovarian Cancer: No Hx Reproductive Disorders: No Hx Sexually Transmitted Disorders: No Hx Uterine Cancer: No Hx Urinary Tract Infection: No - PSYCHIATRIC Hx Anxiety: Yes - SURGICAL HISTORY Hx Cholecystectomy: Yes - ANESTHESIA Hx Anesthesia: Yes Hx Anesthesia Reactions: No Hx Malignant Hyperthermia: No Meds Allergies/Adverse Reactions: Allergies Allergy/AdvReac Type Severity Reaction Status Date / Time No Known Allergies Allergy Verified 08/08/17 13:43 - Medications Medications: Current Medications Famotidine (Pepcid) 40 mg PO HS [facility] Last Admin: 08/08/17 23:36 Dose: 40 mg Fenofibrate (Tricor) 145 mg PO DAILY [facility] Last Admin: 08/09/17 09:52 Dose: 145 mg Heparin Sodium (Porcine) (Heparin) 5,000 units SC Q8 [facility] PRN Reason: Protocol Last Admin: 08/09/17 06:32 Dose: 5,000 units Hydralazine HCl (Apresoline) 10 mg IVP Q6 PRN PRN Reason: Systolic Blood Pressure Lactated Ringer's (Lactated Ringer's) 1,000 mls @ 200 mls/hr IV .Q5H [facility] Insulin Human Lispro (Humalog Med) 0 units SC ACHS [facility] PRN Reason: Protocol Last Admin: 08/09/17 09:52 Dose: 5 units Losartan Potassium (Cozaar) 50 mg PO DAILY [facility] Last Admin: 08/09/17 09:52 Dose: 50 mg Morphine Sulfate (Morphine) 1 mg IVP Q4H PRN PRN Reason: Pain, severe (8-10) Last Admin: 08/09/17 10:01 Dose: 1 mg Ondansetron HCl (Zofran Inj) 4 mg IVP Q6H PRN PRN Reason: Nausea/Vomiting Last Admin: 08/09/17 00:06 Dose: 4 mg Oxycodone/Acetaminophen (Percocet 5/325 Mg Tab) 1 tab PO Q6H PRN PRN Reason: Pain, moderate (4-7) Stop: 08/11/17 21:18 Last Admin: 08/09/17 02:56 Dose: 1 tab Physical Exam - Constitutional Appears: No Acute Distress - Head Exam Head Exam: ATRAUMATIC, NORMOCEPHALIC - Eye Exam Eye Exam: EOMI, PERRL - ENT Exam ENT Exam: Mucous Membranes Moist - Respiratory Exam Respiratory Exam: Clear to Auscultation Bilateral. absent: Rales, Wheezes - Cardiovascular Exam Cardiovascular Exam: REGULAR RHYTHM, RRR, +S1, +S2 - GI/Abdominal Exam GI & Abdominal Exam: Normal Bowel Sounds, Tenderness. absent: Distended Additional comments: Mild tenderness - Extremities Exam Extremities exam: Negative for: calf tenderness, pedal edema - Neurological Exam Neurological exam: Alert, Oriented x3 - Psychiatric Exam Psychiatric exam: Normal Affect, Normal Mood - Skin Skin Exam: Dry, Intact, Warm Results - Vital Signs Recent Vital Signs: Last Vital Signs Temp 97.8 F 08/09/17 07:30 Pulse 65 08/09/17 07:30 Resp 20 08/09/17 07:30 BP 159/65 H 08/09/17 09:52 Pulse Ox 94 L 08/09/17 07:30 - Labs Result Diagrams: 08/09/17 06:30 08/09/17 06:30 Labs: Laboratory Results - last 24 hr 08/08/17 08/09/17 08/09/17 21:55 06:30 06:30 WBC 7.7 RBC 4.43 Hgb 13.5 D Hct 38.2 MCV 86.2 MCH 30.5 MCHC 35.3 RDW 12.6 Plt Count 234 MPV 10.0 Gran % 62.4 Lymph % (Auto) 29.0 [place] % (Auto) 6.0 Eos % (Auto) 2.1 Baso % (Auto) 0.5 Gran # 4.81 Lymph # 2.2 [place] # 0.5 Eos # 0.2 Baso # 0.04 Sodium 135 Potassium 4.4 Chloride 98 Carbon Dioxide 27 Anion Gap 14 BUN 14 Creatinine 0.8 Est GFR ( Amer) > 60 Est GFR (Non-Af Amer) > 60 POC Glucose (mg/dL) 257 H Random Glucose 294 H Calcium 9.3 Phosphorus 3.5 Magnesium 1.1 L Total Bilirubin 0.5 AST 24 ALT 35 Alkaline Phosphatase 52 Total Protein 6.7 Albumin 3.5 Globulin 3.1 Albumin/Globulin Ratio 1.1 08/09/17 07:10 WBC RBC Hgb Hct MCV MCH MCHC RDW Plt Count MPV Gran % Lymph % (Auto) [place] % (Auto) Eos % (Auto) Baso % (Auto) Gran # Lymph # [place] # Eos # Baso # Sodium Potassium Chloride Carbon Dioxide Anion Gap BUN Creatinine Est GFR ( Amer) Est GFR (Non-Af Amer) POC Glucose (mg/dL) 252 H Random Glucose Calcium Phosphorus Magnesium Total Bilirubin AST ALT Alkaline Phosphatase Total Protein Albumin Globulin Albumin/Globulin Ratio Assessment & Plan - Assessment and Plan (Free Text) Assessment: 52 F with past medical history of ETOH abuse (quit drinking in 2010), pancreatits s/p cholecystectomy in 2010 and recurrent pancreatitis followed by EUS in 2011 which was negative for any pancreatic mass, htn, dm, anxiety, adrenal adenoma, who presents to the ED with epigastric abdominal pain likely 2/ 2 pancreatitis. Acute mild pancreatitis, Unclear etiology Hx of ETOH abuse DM HTN - CLD advance as tolerated - Continue IV fluids - LR @ 200 - Pain control - CT abdomen showed mesenteric stranding of uncinate process vs duodenitits, hiatal hernia, esophageal wall thickening, [id number] mass btwn uncinate process and IVC - Ordered CA19-9 and IgG4 will follow up - Ordered urine tox, and alcohol level - Continue Pepcid - Recommend an outpatient Endoscopic US to further evaluate mass by the uncinate process and IVC. Pt follows up with gastroeneterologist Dr Onofre as an outpatient. Case and plan was reviewed and discussed in detail with Dr Díaz. <Brennan Díaz - Last Filed: 08/09/17 16:56> Meds - Medications Medications: Current Medications Famotidine (Pepcid) 40 mg PO HS [facility] Last Admin: 08/08/17 23:36 Dose: 40 mg Fenofibrate (Tricor) 145 mg PO DAILY [facility] Last Admin: 08/09/17 09:52 Dose: 145 mg Heparin Sodium (Porcine) (Heparin) 5,000 units SC Q8 [facility] PRN Reason: Protocol Last Admin: 08/09/17 06:32 Dose: 5,000 units Hydralazine HCl (Apresoline) 10 mg IVP Q6 PRN PRN Reason: Systolic Blood Pressure Lactated Ringer's (Lactated Ringer's) 1,000 mls @ 200 mls/hr IV .Q5H [facility] Insulin Human Lispro (Humalog Med) 0 units SC ACHS [facility] PRN Reason: Protocol Last Admin: 08/09/17 13:00 Dose: 3 units Losartan Potassium (Cozaar) 50 mg PO DAILY [facility] Last Admin: 08/09/17 09:52 Dose: 50 mg Morphine Sulfate (Morphine) 1 mg IVP Q4H PRN PRN Reason: Pain, severe (8-10) Last Admin: 08/09/17 10:01 Dose: 1 mg Ondansetron HCl (Zofran Inj) 4 mg IVP Q6H PRN PRN Reason: Nausea/Vomiting Last Admin: 08/09/17 00:06 Dose: 4 mg Oxycodone/Acetaminophen (Percocet 5/325 Mg Tab) 1 tab PO Q6H PRN PRN Reason: Pain, moderate (4-7) Stop: 08/11/17 21:18 Last Admin: 08/09/17 13:02 Dose: 1 tab Results - Vital Signs Recent Vital Signs: Last Vital Signs Temp 97.8 F 08/09/17 07:30 Pulse 65 08/09/17 07:30 Resp 20 08/09/17 07:30 BP 159/65 H 08/09/17 09:52 Pulse Ox 94 L 08/09/17 07:30 - Labs Result Diagrams: 08/09/17 06:30 08/09/17 06:30 Labs: Laboratory Results - last 24 hr 08/08/17 08/09/17 08/09/17 21:55 06:30 06:30 WBC 7.7 RBC 4.43 Hgb 13.5 D Hct 38.2 MCV 86.2 MCH 30.5 MCHC 35.3 RDW 12.6 Plt Count 234 MPV 10.0 Gran % 62.4 Lymph % (Auto) 29.0 [place] % (Auto) 6.0 Eos % (Auto) 2.1 Baso % (Auto) 0.5 Gran # 4.81 Lymph # 2.2 [place] # 0.5 Eos # 0.2 Baso # 0.04 Sodium 135 Potassium 4.4 Chloride 98 Carbon Dioxide 27 Anion Gap 14 BUN 14 Creatinine 0.8 Est GFR ( Amer) > 60 Est GFR (Non-Af Amer) > 60 POC Glucose (mg/dL) 257 H Random Glucose 294 H Calcium 9.3 Phosphorus 3.5 Magnesium 1.1 L Total Bilirubin 0.5 AST 24 ALT 35 Alkaline Phosphatase 52 Total Protein 6.7 Albumin 3.5 Globulin 3.1 Albumin/Globulin Ratio 1.1 Alcohol, Quantitative 08/09/17 08/09/17 08/09/17 07:10 11:30 11:31 WBC RBC Hgb Hct MCV MCH MCHC RDW Plt Count MPV Gran % Lymph % (Auto) [place] % (Auto) Eos % (Auto) Baso % (Auto) Gran # Lymph # [place] # Eos # Baso # Sodium Potassium Chloride Carbon Dioxide Anion Gap BUN Creatinine Est GFR ( Amer) Est GFR (Non-Af Amer) POC Glucose (mg/dL) 252 H 238 H Random Glucose Calcium Phosphorus Magnesium Total Bilirubin AST ALT Alkaline Phosphatase Total Protein Albumin Globulin Albumin/Globulin Ratio Alcohol, Quantitative < 10 08/09/17 16:32 WBC RBC Hgb Hct MCV MCH MCHC RDW Plt Count MPV Gran % Lymph % (Auto) [place] % (Auto) Eos % (Auto) Baso % (Auto) Gran # Lymph # [place] # Eos # Baso # Sodium Potassium Chloride Carbon Dioxide Anion Gap BUN Creatinine Est GFR ( Amer) Est GFR (Non-Af Amer) POC Glucose (mg/dL) 232 H Random Glucose Calcium Phosphorus Magnesium Total Bilirubin AST ALT Alkaline Phosphatase Total Protein Albumin Globulin Albumin/Globulin Ratio Alcohol, Quantitative Attending/Attestation - Attestation I have personally seen and examined this patient.: Yes I have fully participated in the care of the patient.: Yes I have reviewed all pertinent clinical information: Yes Notes (Text): 08/09/17 16:48 I have seen and examined patient with GI fellow and center medical director. Agree with above documentation with the following additions. In brief, this is a 52 year old female with history of obesity, DM, prior ETOH abuse, pancreatitis, cholecystectomy who presents to hospital with complaint of progressive abdominal pain which started two days ago. She describes a sharp, 10/10 pain that radiates to back and was associated with nausea and non-bloody emesis. Prior to this she was in usual state of health, and her last episode of pancreatitis was nearly 4 years ago. She denies ongoing ETOH use, though admits to recent starting of cigarette smoking. She denies fever/chills, weight loss, recent medication change, or change in bowel habits. She had an EGD and colonoscopy 1 year ago which were normal as per patient. Additional physical examination: Abdomen: no palpable hepato/splenomegaly, diffuse epigastric tenderness DM Obesity History of pancreatitis CT imaging reviewed by me showing opal-pancreatic mesenteric stranding near uncinate process along with 1x2x4 cm mass lesion between uncinate process and IVC (present on prior imaging) Abdominal pain, acute pancreatitis - Clear liquid diet - Continue with IVF hydration therapy - Continue with supportive care, pain control - Obtain CA 19-9 and IGG4 levels - Obtain lipid profile, serum tox screen - Patient would likely benefit from elective outpatient EUS examination of visualized mass lesion following resolution of acute symtoms. Will continue to monitor patient clinical course.
[2017-08-09] MEDS: Lactated Ringer's 1,000 ML IV SCH ×2 (17:05→22:29)
[2017-08-09] MEDS ORDERED: HYDROmorphone 0.5 mg/0.5 ml ISec IVP ONE (22:30)
[2017-08-10] MEDS: Lactated Ringer's 1,000 ML IV SCH ×4 (00:06→22:49)
[2017-08-10 03:23] LABS: BARBITURATES, UR NEGATIVE (NEGATIVE); BENZODIAZEPINES, UR NEGATIVE (NEGATIVE); PHENCYCLIDINE, UR NEGATIVE (NEGATIVE)
[2017-08-10 03:31] LABS: OPIATES, UR POSITIVE (NEGATIVE)
[2017-08-10] MEDS: Morphine 2 mg/ml ISec IVP PRN (04:37)
--- NOTE | 2017-08-10 06:38 | CP.PCM.PN ---
<Delmar Haque - Last Filed: 08/10/17 09:10> Subjective - Date & Time of Evaluation Date of Evaluation: 08/10/17 Time of Evaluation: 06:00 - Subjective Subjective: GI progress note: Pt seen and examined at bedside. No acute events overnight. Pt still complaining of abd pain. One episode of nausea and vomiting. Pt states last BM was 2-3 days ago. 12 Point ROS performed and negative other than stated above. Objective - Vital Signs/Intake and Output Vital Signs (last 24 hours): Temp Pulse Resp BP Pulse Ox 98.3 F 65 18 119/67 97 08/09/17 16:00 08/09/17 16:00 08/09/17 16:00 08/09/17 16:00 08/09/17 16:00 Intake and Output: 08/09/17 08/10/17 18:59 06:59 Intake Total 600 660 Balance 600 660 - Medications Medications: Current Medications Famotidine (Pepcid) 40 mg PO HS [facility] Last Admin: 08/09/17 22:17 Dose: 40 mg Fenofibrate (Tricor) 145 mg PO DAILY [facility] Last Admin: 08/09/17 09:52 Dose: 145 mg Heparin Sodium (Porcine) (Heparin) 5,000 units SC Q8 [facility] PRN Reason: Protocol Last Admin: 08/10/17 06:04 Dose: 5,000 units Hydralazine HCl (Apresoline) 10 mg IVP Q6 PRN PRN Reason: Systolic Blood Pressure Lactated Ringer's (Lactated Ringer's) 1,000 mls @ 200 mls/hr IV .Q5H [facility] Last Admin: 08/10/17 04:06 Dose: 200 mls/hr Insulin Human Lispro (Humalog Med) 0 units SC ACHS [facility] PRN Reason: Protocol Last Admin: 08/09/17 22:33 Dose: Not Given Losartan Potassium (Cozaar) 50 mg PO DAILY [facility] Last Admin: 08/09/17 09:52 Dose: 50 mg Morphine Sulfate (Morphine) 1 mg IVP Q4H PRN PRN Reason: Pain, severe (8-10) Last Admin: 08/10/17 04:37 Dose: 1 mg Ondansetron HCl (Zofran Inj) 4 mg IVP Q6H PRN PRN Reason: Nausea/Vomiting Last Admin: 08/09/17 22:26 Dose: 4 mg Oxycodone/Acetaminophen (Percocet 5/325 Mg Tab) 1 tab PO Q6H PRN PRN Reason: Pain, moderate (4-7) Stop: 08/11/17 21:18 Last Admin: 08/09/17 20:19 Dose: 1 tab - Labs Labs: 08/09/17 06:30 08/09/17 06:30 PT 11.8 SECONDS (9.4-12.5) 08/08/17 15:00 INR 1.03 (0.93-1.08) 08/08/17 15:00 APTT 31.6 Seconds (25.1-36.5) 08/08/17 15:00 - Constitutional Appears: No Acute Distress - Head Exam Head Exam: ATRAUMATIC, NORMOCEPHALIC - Eye Exam Eye Exam: EOMI, PERRL Pupil Exam: NORMAL ACCOMODATION - ENT Exam ENT Exam: Mucous Membranes Moist - Respiratory Exam Respiratory Exam: Clear to Ausculation Bilateral. absent: Rales, Wheezes - Cardiovascular Exam Cardiovascular Exam: REGULAR RHYTHM, RRR, +S1, +S2 - GI/Abdominal Exam GI & Abdominal Exam: Soft. absent: Distended, Tenderness - Extremities Exam Extremities Exam: absent: Calf Tenderness, Pedal Edema - Neurological Exam Neurological Exam: Alert, Awake, Oriented x3 - Skin Skin Exam: Dry, Intact, Warm Assessment and Plan - Assessment and Plan (Free Text) Assessment: 52 F with past medical history of ETOH abuse (quit drinking in 2010), pancreatits s/p cholecystectomy in 2010 and recurrent pancreatitis followed by EUS in 2011 which was negative for any pancreatic mass, htn, dm, anxiety, adrenal adenoma, who presents to the ED with epigastric abdominal pain likely 2/ 2 pancreatitis. Acute mild pancreatitis, Unclear etiology Hx of ETOH abuse DM Obesity - CLD advance as tolerated - Continue IV fluids - LR @ 200 - Pain control - Antiemetics for nausea - CT abdomen showed mesenteric stranding of uncinate process vs duodenitits, hiatal hernia, esophageal wall thickening, [id number] mass btwn uncinate process and IVC - CA19-9 was 22.9 and normal - IgG4 pending will follow up - Continue Pepcid - Recommend an outpatient elective Endoscopic US to further evaluate mass by the uncinate process and IVC. Case and plan was reviewed and discussed in detail with Dr Johnson. <Tor Johnson - Last Filed: 08/10/17 16:28> Objective - Vital Signs/Intake and Output Vital Signs (last 24 hours): Temp Pulse Resp BP Pulse Ox 98.4 F 69 20 160/67 H 96 08/10/17 07:30 08/10/17 09:05 08/10/17 07:30 08/10/17 09:05 08/10/17 07:30 Intake and Output: 08/10/17 08/10/17 06:59 18:59 Intake Total 660 480 Balance 660 480 - Medications Medications: Current Medications Famotidine (Pepcid) 40 mg PO HS [facility] Last Admin: 08/09/17 22:17 Dose: 40 mg Fenofibrate (Tricor) 145 mg PO DAILY [facility] Last Admin: 08/10/17 09:05 Dose: 145 mg Heparin Sodium (Porcine) (Heparin) 5,000 units SC Q8 [facility] PRN Reason: Protocol Last Admin: 08/10/17 06:04 Dose: 5,000 units Hydralazine HCl (Apresoline) 10 mg IVP Q6 PRN PRN Reason: Systolic Blood Pressure Lactated Ringer's (Lactated Ringer's) 1,000 mls @ 200 mls/hr IV .Q5H [facility] Last Admin: 08/10/17 09:40 Dose: 200 mls/hr Insulin Human Lispro (Humalog Med) 0 units SC ACHS [facility] PRN Reason: Protocol Last Admin: 08/10/17 09:06 Dose: 5 units Losartan Potassium (Cozaar) 50 mg PO DAILY [facility] Last Admin: 08/10/17 09:05 Dose: 50 mg Morphine Sulfate (Morphine) 1 mg IVP Q6H PRN PRN Reason: Pain, severe (8-10) Ondansetron HCl (Zofran Inj) 4 mg IVP Q6H PRN PRN Reason: Nausea/Vomiting Last Admin: 08/09/17 22:26 Dose: 4 mg Oxycodone/Acetaminophen (Percocet 5/325 Mg Tab) 1 tab PO Q6H PRN PRN Reason: Pain, moderate (4-7) Stop: 08/11/17 21:18 Last Admin: 08/10/17 06:51 Dose: 1 tab Simethicone (Mylicon Liq) 40 mg PO QID [facility] - Labs Labs: 08/10/17 06:20 08/10/17 06:20 PT 11.8 SECONDS (9.4-12.5) 08/08/17 15:00 INR 1.03 (0.93-1.08) 08/08/17 15:00 APTT 31.6 Seconds (25.1-36.5) 08/08/17 15:00 Attending/Attestation - Attestation I have personally seen and examined this patient.: Yes I have fully participated in the care of the patient.: Yes I have reviewed all pertinent clinical information, including history, physical exam and plan: Yes Notes (Text): 08/10/17 16:26 52 year old female with h/o cholecystectomy, h/o pancreatitis admitted with abdominal pain and CT findings of acute pancreatitis 1. Acute pancreatitis 2. Lymphadenopathy Plan: -recommend IV hydration -advance diet as tolerated to low fat -await IGG4 -recommend outpatient eus in 4-6 weeks -daily ppi
[2017-08-10] MEDS: Oxycodone/Acetaminophen 5/325 mg Tab PO PRN (06:51)
[2017-08-10 06:53] LABS: BASO # 0.03 K/mm3 (0.0-2.0); BASO % 0.5 % (0.0-3.0); EOS # 0.2 (0.0-0.7); EOS % 3.8 % (1.5-5.0); GRAN # 2.79 (1.4-6.5); GRAN % 50.4 % (50.0-68.0); HEMOGLOBIN 13.2 g/dL (12.0-16.0); LYMPH # 2.2 (1.2-3.4); MEAN CELL VOLUME 86.1 fl (80.0-105.0); MEAN CORPUSCULAR HEMOGLOBIN 30.5 pg (25.0-35.0); MEAN CORPUSCULAR HGB CONC 35.4 g/dl (31.0-37.0); MEAN PLATELET VOLUME 9.7 fl (7.0-11.0); MONO # 0.4 (0.1-0.6); MONO % 6.3 % (1.0-6.0); RBC 4.33 10^6/uL (3.5-6.1); RED CELL DISTRIBUTION WIDTH 12.4 % (11.5-14.5); WHITE BLOOD COUNT 5.5 10^3/ul (4.5-11.0)
[2017-08-10 07:21] LABS: ALB/GLOB RATIO 1.1 (1.1-1.8); ALBUMIN 3.2 g/dL (3.0-4.8); ALT/SGPT 38 U/L (7-56); AST/SGOT 26 U/L (14-36); BLOOD UREA NITROGEN 9 mg/dL (7-21); CALCIUM 9.1 mg/dL (8.4-10.5); GFR AFRICAN-AMERICAN > 60; GFR NON-AFRICAN AMERICAN > 60
[2017-08-10] MEDS: Insulin Lispro (humaLOG) MEDIUM Coverage SC SCH ×4 (09:06→22:47)
[2017-08-10] MEDS ORDERED: POLYETHYLENE GLYCOL 3350 17 GM/Dose PACKET PO SCH (10:30)
[2017-08-10] MEDS ORDERED: Morphine 2 mg/ml ISec IVP PRN (11:54)
[2017-08-10] MEDS: Simethicone 40 mg/0.6 ml Liquid (30 ml) PO SCH ×3 (14:00→22:46)
--- NOTE | 2017-08-10 17:28 | CP.PCM.PN ---
Subjective - Date & Time of Evaluation Date of Evaluation: 08/10/17 Time of Evaluation: 11:19 - Subjective Subjective: Dustin Clemens PGY1 IM Progress Note Patient was seen and examined at bedside. she states that her pain is still present and it is intermittent in nature. she states that regarding her diabetes , she follows closely with Dr. Castañeda and Mr. Stout (endocrinology PA in [facility]) and that her A1C has dropped from 11.7 and that they told her that she could avoid insulin requirement if she continued to improve her habits and lifestyle modifications. She states that she has been largely healthy except for a week of unhealthy eating. Patient denies passing gas but is feeling gassy. Patient denies headaches, fevers/chills, weakness, n/v/d, chest pain or shortness of breath. Objective - Vital Signs/Intake and Output Vital Signs (last 24 hours): Temp Pulse Resp BP Pulse Ox 98.9 F 67 18 151/61 H 98 08/10/17 16:32 08/10/17 16:32 08/10/17 16:32 08/10/17 16:32 08/10/17 16:32 Intake and Output: 08/10/17 08/10/17 06:59 18:59 Intake Total 660 480 Balance 660 480 - Medications Medications: Current Medications Famotidine (Pepcid) 40 mg PO HS [facility] Last Admin: 08/09/17 22:17 Dose: 40 mg Fenofibrate (Tricor) 145 mg PO DAILY [facility] Last Admin: 08/10/17 09:05 Dose: 145 mg Heparin Sodium (Porcine) (Heparin) 5,000 units SC Q8 [facility] PRN Reason: Protocol Last Admin: 08/10/17 16:33 Dose: 5,000 units Hydralazine HCl (Apresoline) 10 mg IVP Q6 PRN PRN Reason: Systolic Blood Pressure Lactated Ringer's (Lactated Ringer's) 1,000 mls @ 200 mls/hr IV .Q5H [facility] Last Admin: 08/10/17 09:40 Dose: 200 mls/hr Insulin Human Lispro (Humalog Med) 0 units SC ACHS [facility] PRN Reason: Protocol Last Admin: 08/10/17 09:06 Dose: 5 units Losartan Potassium (Cozaar) 50 mg PO DAILY [facility] Last Admin: 08/10/17 09:05 Dose: 50 mg Morphine Sulfate (Morphine) 1 mg IVP Q6H PRN PRN Reason: Pain, severe (8-10) Ondansetron HCl (Zofran Inj) 4 mg IVP Q6H PRN PRN Reason: Nausea/Vomiting Last Admin: 08/09/17 22:26 Dose: 4 mg Oxycodone/Acetaminophen (Percocet 5/325 Mg Tab) 1 tab PO Q6H PRN PRN Reason: Pain, moderate (4-7) Stop: 08/11/17 21:18 Last Admin: 08/10/17 06:51 Dose: 1 tab Simethicone (Mylicon Liq) 40 mg PO QID [facility] - Labs Labs: 08/10/17 06:20 08/10/17 06:20 PT 11.8 SECONDS (9.4-12.5) 08/08/17 15:00 INR 1.03 (0.93-1.08) 08/08/17 15:00 APTT 31.6 Seconds (25.1-36.5) 08/08/17 15:00 - Additional Findings Additional findings: - Constitutional Appears: Non-toxic, No Acute Distress - Head Exam Head Exam: atraumatic, normocephalic - Eye Exam Eye Exam: Normal appearance, PERRL. absent: Scleral icterus - ENT Exam ENT Exam: Mucous Membranes Moist - Neck Exam Neck exam: Normal Inspection - Respiratory Exam Respiratory Exam: Normal Breathing Pattern - Cardiovascular Exam Cardiovascular Exam: +S1, +S2. absent: Gallop, JVD - GI/Abdominal Exam GI & Abdominal Exam: tender to palpation in the epigastrum, Hypoactive Bowel Sounds, absent: Distended, Guarding, Pulsatile Mass, Rebound, Rigid - Extremities Exam Extremities exam: Negative for: calf tenderness - Neurological Exam Neurological exam: Patient is awake, alert, responds to verbal stimuli, answers questions appropriately, follows commands, and moves extremities past midline - Psychiatric Exam Psychiatric exam: Normal Affect, Normal Mood - Skin Skin Exam: warm and dry Assessment and Plan - Assessment and Plan (Free Text) Assessment: 52 year old female with past medical history of pancreatits, htn, dm, anxiety, adrenal adenoma, who was admitted for evaluation and treatment of abdominal pain. Plan: 1. Abdominal Pain, likely 2/2 diabetic gastroparesis vs pancreatitis - clinically presents as pancreatitis though lipase is WNL - CT of abd/pelvis reviewed- Mesenteric stranding in region of uncinate process. Mesenteric stranding is also adjacent to the duodenal sweep. Question pancreatitis versus duodenitis. Approximately 1 x 2 x 4 cm mass between the uncinate process and IVC, question norma conglomerate or other mass. This is visualized on prior study. - LR @ 200 - zofran prn - simethicone ordered - pain control via pecocet 1mg q6 prn moderate pain, morphine 1mg q6 prn severe pain - HHD - GI consulted, rec outpatient US - patient will follow up with Dr. Onofre (private GI) after discharge 2. Hyperglycemia, Hx of Diabetes - hold home diabetic medications - fingersticks ACHS - insulin sliding scale- lispro medium - resume diet as carb consistent as end goal - a1c ordered and pending 3. Hx of Htn - c/w losartan - hydralazine 5mg IV q6 prn SBP > 180, holding parameters- do not administer if HR is > 100 bpm 4. Hx of Hyperlipidemia - c/w fenofibrate - elevated LDL 5. Hx of Adrenal Adenoma - 2 cm left adrenal mass seen on CT - no acute intervention at this point - outpatient follow up 6. Ovarian Cyst - CT of abdomen and pelvis- Evidence of approximately 2 cm right ovarian cyst - obgyn outpatient work up 7. Tobacco Abuse - nicotine patch offered - smoking cessation advised - patient education provided on dangers of tobacco abuse 8. Prophylaxis - DVT ppx- scds - GI ppx- famotidine Patient was seen, examined and discussed with attending, Dr. Mojgan Clemens PGY1
[2017-08-10] MEDS ORDERED: HYDROmorphone 0.5 mg/0.5 ml ISec IVP STA (22:38)
[2017-08-11] MEDS: Lactated Ringer's 1,000 ML IV SCH ×2 (00:21→05:32)
[2017-08-11] MEDS ORDERED: Lactated Ringer's 1,000 ML IV SCH (05:55)
--- NOTE | 2017-08-11 05:56 | CP.PCM.PN ---
<Elza Martínez - Last Filed: 08/11/17 10:34> Subjective - Date & Time of Evaluation Date of Evaluation: 08/11/17 Time of Evaluation: 05:52 - Subjective Subjective: Gastroenterology Fellow/PGY5 Progress Note Patient admits to abdominal pain overnight. One episode of vomiting overnight confirmed by nursing in conjunction with systolic blood pressure over 200. Tolerated diet yesterday. 12-point review of systems negative except for as above. Objective - Vital Signs/Intake and Output Vital Signs (last 24 hours): Temp Pulse Resp BP Pulse Ox 98.9 F 61 18 210/102 H 98 08/10/17 16:32 08/11/17 00:28 08/10/17 16:32 08/11/17 00:28 08/10/17 16:32 Intake and Output: 08/10/17 08/11/17 18:59 06:59 Intake Total 480 960 Output Total 100 Balance 480 860 - Medications Medications: Current Medications Famotidine (Pepcid) 40 mg PO HS [facility] Last Admin: 08/10/17 22:44 Dose: 40 mg Fenofibrate (Tricor) 145 mg PO DAILY [facility] Last Admin: 08/10/17 09:05 Dose: 145 mg Heparin Sodium (Porcine) (Heparin) 5,000 units SC Q8 [facility] PRN Reason: Protocol Last Admin: 08/10/17 22:48 Dose: 5,000 units Hydralazine HCl (Apresoline) 10 mg IVP Q6 PRN PRN Reason: Systolic Blood Pressure Last Admin: 08/11/17 00:28 Dose: 10 mg Lactated Ringer's (Lactated Ringer's) 1,000 mls @ 200 mls/hr IV .Q5H [facility] Last Admin: 08/11/17 05:32 Dose: 200 mls/hr Insulin Human Lispro (Humalog Med) 0 units SC ACHS [facility] PRN Reason: Protocol Last Admin: 08/10/17 22:47 Dose: 1 units Losartan Potassium (Cozaar) 50 mg PO DAILY [facility] Last Admin: 08/10/17 09:05 Dose: 50 mg Morphine Sulfate (Morphine) 1 mg IVP Q6H PRN PRN Reason: Pain, severe (8-10) Last Admin: 08/10/17 19:53 Dose: 1 mg Ondansetron HCl (Zofran Inj) 4 mg IVP Q6H PRN PRN Reason: Nausea/Vomiting Last Admin: 08/09/17 22:26 Dose: 4 mg Oxycodone/Acetaminophen (Percocet 5/325 Mg Tab) 1 tab PO Q6H PRN PRN Reason: Pain, moderate (4-7) Stop: 08/11/17 21:18 Last Admin: 08/10/17 06:51 Dose: 1 tab Simethicone (Mylicon Liq) 40 mg PO QID [facility] Last Admin: 08/10/17 22:46 Dose: 40 ml - Labs Labs: 08/10/17 06:20 08/10/17 06:20 PT 11.8 SECONDS (9.4-12.5) 08/08/17 15:00 INR 1.03 (0.93-1.08) 08/08/17 15:00 APTT 31.6 Seconds (25.1-36.5) 08/08/17 15:00 - Constitutional Appears: Non-toxic, No Acute Distress - Head Exam Head Exam: ATRAUMATIC, NORMOCEPHALIC - Eye Exam Eye Exam: EOMI, PERRL. absent: Scleral icterus Pupil Exam: PERRL. absent: Miosis, Mydriatic - ENT Exam ENT Exam: Mucous Membranes Moist, Normal Oropharynx - Neck Exam Neck Exam: Full ROM, Normal Inspection - Respiratory Exam Respiratory Exam: Clear to Ausculation Bilateral. absent: Rales, Rhonchi, Wheezes - Cardiovascular Exam Cardiovascular Exam: RRR, +S1, +S2. absent: Gallop, Rubs - GI/Abdominal Exam GI & Abdominal Exam: Soft, Tenderness, Normal Bowel Sounds. absent: Distended, Firm, Guarding, Rigid, Organomegaly - Extremities Exam Extremities Exam: Normal Inspection. absent: Pedal Edema - Neurological Exam Neurological Exam: Alert, Awake - Psychiatric Exam Psychiatric exam: Normal Affect, Normal Mood - Skin Skin Exam: Dry, Intact, Normal Color, Warm Assessment and Plan - Assessment and Plan (Free Text) Assessment: 52 year old female with history of Hypertension, Diabetes, recurrent pancreatitis 2/2 alcohol/gallstones s/p cholecystectomy (2010)with normal EUS ( 2012) presenting with abdominal pain. active treatment of acute mild pancreatitis of unclear etiology. CT A/P with note of a 3m7x8ia mass between the uncinate process and IVC. Prior EGD/colonoscopy 2017 endorsed to show Gastritis and colonic precancerous polyps with recommend three year surveillance. Plan: >decreased IVFs >low fat diet as tolerated >supportive care: pain control, antiemetics >IgG4 pending >CT imaging reviewed with radiologist- unchanged portocaval lymphadenopathy present on prior imaging >recommend outpatient EUS in 4-6 weeks for further evaluation <Rio Reynolds MD - Last Filed: 08/11/17 13:03> Objective - Vital Signs/Intake and Output Vital Signs (last 24 hours): Temp Pulse Resp BP Pulse Ox 98 F 63 20 141/59 L 97 08/11/17 07:57 08/11/17 07:57 08/11/17 07:57 08/11/17 07:57 08/11/17 07:57 Intake and Output: 08/11/17 08/11/17 06:59 18:59 Intake Total 960 Output Total 100 Balance 860 - Medications Medications: Current Medications Famotidine (Pepcid) 40 mg PO HS [facility] Last Admin: 08/10/17 22:44 Dose: 40 mg Fenofibrate (Tricor) 145 mg PO DAILY [facility] Last Admin: 08/11/17 09:17 Dose: 145 mg Heparin Sodium (Porcine) (Heparin) 5,000 units SC Q8 [facility] PRN Reason: Protocol Last Admin: 08/11/17 06:18 Dose: 5,000 units Hydralazine HCl (Apresoline) 10 mg IVP Q6 PRN PRN Reason: Systolic Blood Pressure Last Admin: 08/11/17 00:28 Dose: 10 mg Lactated Ringer's (Lactated Ringer's) 1,000 mls @ 100 mls/hr IV .Q10H [facility] Last Admin: 08/11/17 06:36 Dose: 100 mls/hr Insulin Human Lispro (Humalog Med) 0 units SC ACHS [facility] PRN Reason: Protocol Last Admin: 08/11/17 09:17 Dose: 3 units Losartan Potassium (Cozaar) 50 mg PO DAILY [facility] Last Admin: 08/11/17 09:17 Dose: 50 mg Morphine Sulfate (Morphine) 1 mg IVP Q6H PRN PRN Reason: Pain, severe (8-10) Last Admin: 08/10/17 19:53 Dose: 1 mg Ondansetron HCl (Zofran Inj) 4 mg IVP Q6H PRN PRN Reason: Nausea/Vomiting Last Admin: 08/09/17 22:26 Dose: 4 mg Oxycodone/Acetaminophen (Percocet 5/325 Mg Tab) 1 tab PO Q6H PRN PRN Reason: Pain, moderate (4-7) Stop: 08/11/17 21:18 Last Admin: 08/10/17 06:51 Dose: 1 tab Simethicone (Mylicon Liq) 40 mg PO QID [facility] Last Admin: 08/10/17 22:46 Dose: 40 ml - Labs Labs: 08/11/17 06:35 08/11/17 06:35 PT 11.8 SECONDS (9.4-12.5) 08/08/17 15:00 INR 1.03 (0.93-1.08) 08/08/17 15:00 APTT 31.6 Seconds (25.1-36.5) 08/08/17 15:00 Attending/Attestation - Attestation I have personally seen and examined this patient.: Yes I have fully participated in the care of the patient.: Yes I have reviewed all pertinent clinical information, including history, physical exam and plan: Yes Notes (Text): 08/11/17 13:00 This is a 52 year old female with history of Hypertension, Diabetes, recurrent pancreatitis 2/2 alcohol/gallstones s/p cholecystectomy (2010) with normal EUS ( 2011) presenting with abdominal pain in setting of mild uncomplicated acute pancreatitis and constipation. Biochemical evidence of resolved pancreatitis with physical exam of abdomen normal. Tolerating regular low fat diet. Will give miralax for ileus like features. Recommend outpatient EUS in 4-[address] Johnson for uncinate process lesion ? LN She can be discharged from Gi perspective. Thank you for letting us participate in the care of your patient
[2017-08-11 07:18] LABS: BASO # 0.02 K/mm3 (0.0-2.0); BASO % 0.4 % (0.0-3.0); EOS # 0.2 (0.0-0.7); GRAN # 3.12 (1.4-6.5); GRAN % 55.2 % (50.0-68.0); HEMOGLOBIN 12.8 g/dL (12.0-16.0); MEAN CELL VOLUME 84.3 fl (80.0-105.0); MEAN CORPUSCULAR HGB CONC 35.6 g/dl (31.0-37.0); MEAN PLATELET VOLUME 9.8 fl (7.0-11.0); MONO # 0.4 (0.1-0.6); MONO % 6.4 % (1.0-6.0); RBC 4.27 10^6/uL (3.5-6.1); RED CELL DISTRIBUTION WIDTH 12.5 % (11.5-14.5); WHITE BLOOD COUNT 5.7 10^3/ul (4.5-11.0)
[2017-08-11 07:31] LABS: ALB/GLOB RATIO 1.1 (1.1-1.8); ALBUMIN 3.2 g/dL (3.0-4.8); ALT/SGPT 44 U/L (7-56); AST/SGOT 20 U/L (14-36); BLOOD UREA NITROGEN 9 mg/dL (7-21); CALCIUM 9.4 mg/dL (8.4-10.5); GFR AFRICAN-AMERICAN > 60; GFR NON-AFRICAN AMERICAN > 60
[2017-08-11] MEDS: Insulin Lispro (humaLOG) MEDIUM Coverage SC SCH (09:17)
[2017-08-11] MEDS ORDERED: POLYETHYLENE GLYCOL 3350 17 GM/Dose PACKET PO ONE (13:03)
[2017-08-11 16:49] VITALS: BP 163/74; PULSE 67; RESP 18; TEMP 98.5; O2SAT 98
--- NOTE | 2017-08-11 18:49 | CP.PCM.DIS ---
Provider - Provider Date of Admission: 08/08/17 21:02 Attending physician: Brendan Ulrich MD Primary care physician: Ivonne Wilson MD Time Spent in preparation of Discharge (in minutes): 45 Diagnosis - Discharge Diagnosis (1) Gastritis Status: Acute (2) Gastroparesis Status: Acute (3) Pancreatitis Status: Chronic (4) Diabetes Status: Chronic (5) HTN (hypertension) Status: Chronic (6) Anxiety Status: Chronic (7) Adrenal adenoma Status: Chronic Hospital Course - Lab Results Lab Results: Most Recent Lab Values WBC 5.7 10^3/ul (4.5-11.0) 08/11/17 06:35 RBC 4.27 10^6/uL (3.5-6.1) 08/11/17 06:35 Hgb 12.8 g/dL (12.0-16.0) 08/11/17 06:35 Hct 36.0 % (36.0-48.0) 08/11/17 06:35 MCV 84.3 fl (80.0-105.0) 08/11/17 06:35 MCH 30.0 pg (25.0-35.0) 08/11/17 06:35 MCHC 35.6 g/dl (31.0-37.0) 08/11/17 06:35 RDW 12.5 % (11.5-14.5) 08/11/17 06:35 Plt Count 210 10^3/uL (120.0-450.0) 08/11/17 06:35 MPV 9.8 fl (7.0-11.0) 08/11/17 06:35 Gran % 55.2 % (50.0-68.0) 08/11/17 06:35 Lymph % (Auto) 35.0 % (22.0-35.0) 08/11/17 06:35 [place] % (Auto) 6.4 % (1.0-6.0) H 08/11/17 06:35 Eos % (Auto) 3.0 % (1.5-5.0) 08/11/17 06:35 Baso % (Auto) 0.4 % (0.0-3.0) 08/11/17 06:35 Gran # 3.12 (1.4-6.5) 08/11/17 06:35 Lymph # 2.0 (1.2-3.4) 08/11/17 06:35 [place] # 0.4 (0.1-0.6) 08/11/17 06:35 Eos # 0.2 (0.0-0.7) 08/11/17 06:35 Baso # 0.02 K/mm3 (0.0-2.0) 08/11/17 06:35 PT 11.8 SECONDS (9.4-12.5) 08/08/17 15:00 INR 1.03 (0.93-1.08) 08/08/17 15:00 APTT 31.6 Seconds (25.1-36.5) 08/08/17 15:00 Sodium 136 mmol/L (132-148) 08/11/17 06:35 Potassium 3.8 mmol/L (3.6-5.0) 08/11/17 06:35 Chloride 99 mmol/L (98-107) 08/11/17 06:35 Carbon Dioxide 30 mmol/L (21-33) 08/11/17 06:35 Anion Gap 11 (10-20) 08/11/17 06:35 BUN 9 mg/dL (7-21) 08/11/17 06:35 Creatinine 0.6 mg/dl (0.7-1.2) L 08/11/17 06:35 Est GFR ( Amer) > 60 08/11/17 06:35 Est GFR (Non-Af Amer) > 60 08/11/17 06:35 POC Glucose (mg/dL) 277 mg/dL (65-110) H 08/11/17 16:45 Random Glucose 244 mg/dL (70-110) H 08/11/17 06:35 Hemoglobin A1c 10.8 % (4.2-6.5) H D 08/08/17 21:00 Calcium 9.4 mg/dL (8.4-10.5) 08/11/17 06:35 Phosphorus 3.5 mg/dL (2.5-4.5) 08/09/17 06:30 Magnesium 1.1 mg/dL (1.7-2.2) L 08/09/17 06:30 Total Bilirubin 0.4 mg/dL (0.2-1.3) 08/11/17 06:35 AST 20 U/L (14-36) 08/11/17 06:35 ALT 44 U/L (7-56) 08/11/17 06:35 Alkaline Phosphatase 45 U/L (38-126) 08/11/17 06:35 Troponin I < 0.01 ng/mL 08/08/17 15:00 Total Protein 6.0 g/dL (5.8-8.3) 08/11/17 06:35 Albumin 3.2 g/dL (3.0-4.8) 08/11/17 06:35 Globulin 2.8 gm/dL 08/11/17 06:35 Albumin/Globulin Ratio 1.1 (1.1-1.8) 08/11/17 06:35 Triglycerides 396 mg/dL (35-160) H 08/08/17 21:00 Cholesterol 239 mg/dL (130-200) H 08/08/17 21:00 LDL Cholesterol Direct 130 mg/dL (0-129) H 08/08/17 21:00 HDL Cholesterol 38 mg/dL (29-60) 08/08/17 21:00 Lipase 247 U/L (23-300) 08/08/17 15:00 CA 19-9 Antigen 22.9 U/mL (0-37) 08/09/17 11:30 Urine Color Yellow (YELLOW) 08/08/17 15:10 Urine Appearance Sl cloudy (CLEAR) 08/08/17 15:10 Urine pH 6.0 (4.7-8.0) 08/08/17 15:10 Ur Specific [place] 1.020 (1.005-1.035) 08/08/17 15:10 Urine Protein 100 mg/dL (<30 mg/dL) H 08/08/17 15:10 Urine Glucose (UA) >=1000 mg/dL (NEGATIVE) 08/08/17 15:10 Urine Ketones Negative mg/dL (NEGATIVE) 08/08/17 15:10 Urine Blood Trace-intact (NEGATIVE) H 08/08/17 15:10 Urine Nitrate Negative (NEGATIVE) 08/08/17 15:10 Urine Bilirubin Negative (NEGATIVE) 08/08/17 15:10 Urine Urobilinogen 0.2 E.U./dL (<1 E.U./dL) 08/08/17 15:10 Ur Leukocyte Esterase Negative [place]/uL (NEGATIVE) 08/08/17 15:10 Urine RBC 0 - 2 /hpf (0-2) 08/08/17 15:10 Urine WBC 2 - 5 /hpf (0-6) 08/08/17 15:10 Ur Epithelial Cells 6 - 8 /hpf (0-5) 08/08/17 15:10 Urine Bacteria Few (NEG) 08/08/17 15:10 Urine Opiates Screen Positive (NEGATIVE) H 08/10/17 02:00 Urine Methadone Screen Negative (NEGATIVE) 08/10/17 02:00 Ur Barbiturates Screen Negative (NEGATIVE) 08/10/17 02:00 Ur Phencyclidine Scrn Negative (NEGATIVE) 08/10/17 02:00 Ur Amphetamines Screen Negative (NEGATIVE) 08/10/17 02:00 U Benzodiazepines Scrn Negative (NEGATIVE) 08/10/17 02:00 U Oth Cocaine Metabols Negative (NEGATIVE) 08/10/17 02:00 U Cannabinoids Screen Negative (NEGATIVE) 08/10/17 02:00 Alcohol, Quantitative < 10 mg/dL (0-10) 08/09/17 11:30 - Hospital Course Hospital Course: Ms. Terry is a 52 year old female with past medical history of pancreatits, htn , dm, anxiety, adrenal adenoma who was admitted for evaluation and treatment of abdominal pain associated with nausea/vomiting and 3wks diarrhea. GI was consulted. CT abdomen showed mesenteric stranding, approximately 1 x 2 x 4 cm mass between the uncinate process and IVC, 2 cm left adrenal mass, fatty infiltration of the liver, status post cholecystectomy, and 2 cm right ovarian cyst. Lipase was not elevated on presentation. Patient's diet was slowly advanced as tolerated. Hospital course included episodes of hypertension SBP > 200 and BS >350. A1C was 10.8 and discussion was had with patient regarding starting insulin however patient is adamant about not starting and states that her A1C has dropped from 11.7 by lifestyle modifications which she intends to continue and that she has close follow up with Dr. Castañeda and Mr. Stout ( endocrinology PA in [facility]) who manage her diabetes; she does however state that her vision has been worsening and that she has numbness at times in her feet, and she was strongly encouraged to start insulin and stick to strict glycemic control. LDL was also elevated. CA19-9 and IGG4 were ordered by GI And they recommended outpatient endoscopic US. Pain was managed. Patient was ambulating well without dizziness or any weakness and was tolerating regular diet. She is medically cleared for discharge. Patient will follow up with Dr. Castañeda and is prescribed Pepcid, Zofran and simethicone. Discharge Exam - Head Exam Head Exam: ATRAUMATIC, NORMOCEPHALIC - Eye Exam Eye Exam: EOMI, Normal appearance - ENT Exam ENT Exam: Mucous Membranes Moist - Neck Exam Neck exam: Normal Inspection - Respiratory Exam Respiratory Exam: Clear to PA & Lateral, NORMAL BREATHING PATTERN. absent: Rales, Rhonchi, Wheezes - Cardiovascular Exam Cardiovascular Exam: RRR, +S1, +S2 - GI/Abdominal Exam GI & Abdominal Exam: Hypoactive Bowel Sounds, Soft. absent: Distended, Guarding , Tenderness - Extremities Exam Extremities exam: normal inspection - Back Exam Back exam: NORMAL INSPECTION - Neurological Exam Neurological exam: Alert, CN II-XII Intact, Oriented x3 - Psychiatric Exam Psychiatric exam: Normal Affect, Normal Mood - Skin Skin Exam: Normal Color, Warm Discharge Plan - Discharge Medications Prescriptions: Famotidine [Pepcid] 40 mg PO HS #15 tab Ondansetron ODT [Zofran ODT] 8 mg PO TID PRN #20 odt PRN Reason: Nausea/Vomiting Simethicone [Mylicon Liq] 40 mg PO QID #15 ml - Follow Up Plan Condition: STABLE Disposition: HOME/ ROUTINE Instructions: Viral Pneumonia (GEN), Gastritis (DC), Diabetic Gastroparesis (DC ), Influenza (DC), Fall Prevention (DC) Additional Instructions: - please follow up with Dr. Castañeda within 1 week - please follow up with Dr. Onofre when appointment can be made for outpatient endoscopic US - please follow closely with your endocrine [facility] [employer] regarding diabetic medication adjustment - please follow low fat diet as tolerated - please take zofran prn for nausea/vomiting as needed - if you continue to experience abdominal pain, please return to ER for eval Referrals: Toi Onofre MD [Non-Staff] - Ivonne Wilson MD [Primary Care Provider] -
== END 2017-08-11 22:42 | disposition home or self-care (01) | DRG 18 ==
LOC: ED 13:41 → ERH 21:02 → 5RNO 22:55
PROVIDERS: ADMIT Internal Medicine; ATTEND Hospitalist
DX: E11.43 Type 2 diabetes mellitus with diabetic autonomic (poly)neuropathy (principal); K31.84 Gastroparesis; K86.0 Alcohol-induced chronic pancreatitis; E11.65 Type 2 diabetes mellitus with hyperglycemia; E83.42 Hypomagnesemia; D35.00 Benign neoplasm of unspecified adrenal gland; I10 Essential (primary) hypertension; K29.70 Gastritis, unspecified, without bleeding; E66.9 Obesity, unspecified; E78.5 Hyperlipidemia, unspecified; R59.1 Generalized enlarged lymph nodes; K44.9 Diaphragmatic hernia without obstruction or gangrene; N83.201 Unspecified ovarian cyst, right side; F41.9 Anxiety disorder, unspecified; F17.210 Nicotine dependence, cigarettes, uncomplicated; Z90.49 Acquired absence of other specified parts of digestive tract

== ENCOUNTER 2017-09-28 06:24 | Day surgery (SDC) | payer MEDICAID ==
[2017-09-17 09:52] VITALS: BMI 36.9
[2017-09-28 07:27] LABS: BASO # 0.03 K/mm3 (0.0-2.0); BASO % 0.4 % (0.0-3.0); EOS # 0.2 (0.0-0.7); EOS % 1.8 % (1.5-5.0); GRAN # 5.89 (1.4-6.5); GRAN % 71.6 % (50.0-68.0); HEMOGLOBIN 14.6 g/dL (12.0-16.0); LYMPH # 1.7 (1.2-3.4); LYMPH % 21.2 % (22.0-35.0); MEAN CELL VOLUME 90.3 fl (80.0-105.0); MEAN CORPUSCULAR HEMOGLOBIN 30.7 pg (25.0-35.0); MEAN PLATELET VOLUME 10.2 fl (7.0-11.0); MONO # 0.4 (0.1-0.6); RBC 4.75 10^6/uL (3.5-6.1); RED CELL DISTRIBUTION WIDTH 13.2 % (11.5-14.5); WHITE BLOOD COUNT 8.2 10^3/ul (4.5-11.0)
[2017-09-28 07:36] LABS: ALB/GLOB RATIO 1.2 (1.1-1.8); ALBUMIN 4.4 g/dL (3.0-4.8); ALT/SGPT 39 U/L (7-56); AST/SGOT 24 U/L (14-36); BLOOD UREA NITROGEN 18 mg/dL (7-21); CALCIUM 10.4 mg/dL (8.4-10.5); GFR AFRICAN-AMERICAN > 60; GFR NON-AFRICAN AMERICAN > 60
[2017-09-28 07:39] LABS: INR 0.91 (0.93-1.08); PARTIAL THROMBOPLASTIN TIME 35.6 Seconds (25.1-36.5); PROTHROMBIN TIME 10.5 SECONDS (9.4-12.5)
[2017-09-28] MEDS ORDERED: Propofol 10 mg/ml Inj (20 ML) ONE ×2 (09:35→10:22)
[2017-09-28] MEDS ORDERED: Lidocaine 2% Inj (20ml) ONE (09:35)
[2017-09-28] MEDS ORDERED: Sodium Chloride 0.9% 1,000 ML IV SCH (10:45)
[2017-09-28 13:18] VITALS: BP 132/82; PULSE 67; RESP 17; TEMP 98.7; O2SAT 97
== END 2017-09-28 12:34 | disposition home or self-care (01) ==
LOC: ENDO 06:24
PROVIDERS: ATTEND Internal Medicine
DX: R59.0 Localized enlarged lymph nodes (principal); K29.50 Unspecified chronic gastritis without bleeding; E11.9 Type 2 diabetes mellitus without complications; I10 Essential (primary) hypertension; E78.1 Pure hyperglyceridemia; Z90.49 Acquired absence of other specified parts of digestive tract; R19.7 Diarrhea, unspecified; Z87.19 Personal history of other diseases of the digestive system; F17.200 Nicotine dependence, unspecified, uncomplicated
CPT/HCPCS: 36415; 43239; 43242; 80053; 82948; 85025; 85610; 85730; 88305; 88342; J2704; J3010; J7040 ×2